=== PATIENT | female | born 1985 | race Caucasian/White ===

== ENCOUNTER → 2019-03-05 15:20 | Outpatient (CLI) | payer MEDICAID, SELFPAY ==
[2019-03-05 14:18] VITALS: BMI 40.4
[2019-03-05 17:14] LABS: ALB/GLOB Ratio 0.9 RATIO (0.9-2.4); AST(SGOT) 46 U/L (15-37); Alanine Aminotransfer ALT/SGPT 51 U/L (13-56); Albumin, Serum 3.3 g/dL (3.2-5.0); Alkaline Phosphatase 57 U/L (45-117); Anion Gap 8 (5-15); BUN 5 mg/dL (7-18); BUN/Creat Ratio 8.2 RATIO (10-20); Calcium,Total 8.4 mg/dL (8.5-10.1); Chloride 106 mmol/L (98-107); Creatinine, Serum 0.61 mg/dL (0.55-1.02); EST Glomerular Filtration Rate 120 mL/min (>60); Est Glom Filt Rate - Afr Amer 145 mL/min (>60); Globulin 3.6 g/dL (2.2-4.2); Glucose 113 mg/dL (74-106); Glucose Challenge Gest 1H 50g 113 mg/dL (70-140); Potassium 3.4 mmol/L (3.5-5.1); Protein, Total 6.9 g/dL (6.4-8.2); Sodium Level 138 mmol/L (136-145)
[2019-03-05 17:37] LABS: Absolute Neutrophil Count 3.1 X10^3/uL (2.0-7.7); Basophil# 0.01 X10^3/uL; Basophil% 0.2 % (0-1); Eosinophil# 0.11 X10^3/uL; Eosinophils% 1.8 % (0-5); Hematocrit 40.5 % (37-47); Hemoglobin 13.6 g/dl (12.0-15.0); Lymphocyte % 37.5 % (19-41); Mean Corp Hgb Conc 33.6 g/gl (32-36); Mean Corpuscular Hgb 30.3 pg (27.0-32.0); Mean Corpuscular Volume 90.2 fL (81-99); Monocyte# 0.57 X10^3/uL; Monocyte% 9.3 % (0-10); Neutrophil # 3.14 X10^3/uL (2.7-7.7); Platelet Count 233 K/mm3 (150-450); RBC Distribution Width CV 11.9 % (11.6-14.6); RBC Distribution Width SD 38.3 fl (35.1-43.9); Red Blood Count 4.49 M/mm3 (4.2-5.4); White Blood Count 6.1 K/mm3 (4.4-11.0)
[2019-03-05 17:43] LABS: POSITIVE COUNT NO; POSITIVE DIFFERENTIAL NO; POSITIVE MORPHOLOGY NO
[2019-03-05 18:01] LABS: HIV - WCH Non-Reactive (Nonreactive); Rubella IgG 61.2 IU/mL
[2019-03-05 19:48] LABS: Chlamydia Trachomatis by PCR Negative (Negative); Neisserai gonorrhoeae by PCR Negative (Negative); Probe Check PASS; Sample Adequacy Control PASS; Specimen Processing Control PASS
[2019-03-07 02:05] LABS: Rapid Plasmin Reagin (RPR) NONREACTIVE (NONREACTIVE)
[2019-03-08 03:06] LABS: HCV Quant. RNA PCR 1120000 IU/mL (.)
[2019-03-08 12:44] LABS: HCV log 10 6.049 (.); HEPATITIS B SURFACE AG Negative (Negative)
[2019-03-11 16:51] LABS: HPV APTIMA, High Risk Negative (Negative)
== END ==
PROVIDERS: Referring Provider Nurse Practitioner Women's Health; Visit Provider Nurse Practitioner Women's Health
DX: O98.519 Other viral diseases complicating pregnancy, unspecified trimester (principal); B19.20 Unspecified viral hepatitis C without hepatic coma; O99.210 Obesity complicating pregnancy, unspecified trimester; Z3A.00 Weeks of gestation of pregnancy not specified; Z12.4 Encounter for screening for malignant neoplasm of cervix
CPT/HCPCS: 36415; 80053; 82950; 85025; 86592; 86703; 86762; 86850; 86900; 87086; 87088; 87340; 87491; 87522; 87591; 87624; 88175; G0145

== ENCOUNTER → 2019-04-04 09:02 | Outpatient (CLI) | payer MEDICAID, SELFPAY ==
[2019-04-04 08:31] VITALS: BMI 40.4
[2019-04-04 10:07] LABS: Partial Thromboplast Time 28.3 Seconds (24.1-36.2)
[2019-04-11 12:00] LABS: Protein C, Functional 122 % (73-180); Protein S, Free 49 % (57-157); Protein S, Total 58 % (60-150)
== END ==
PROVIDERS: Referring Provider Obstetrics & Gynecology; Visit Provider Obstetrics & Gynecology
DX: Z34.82 Encounter for supervision of other normal pregnancy, second trimester (principal); Z31.430 Encounter of female for testing for genetic disease carrier status for procreative management
CPT/HCPCS: 36415; 81241; 85303; 85305; 85306; 85730

== ENCOUNTER 2019-05-02 22:05 | Emergency (ER) | payer MEDICAID, SELFPAY ==
[2019-04-04 08:31] VITALS: BMI 40.4
[2019-05-02 22:05] VITALS: BP 127/66; PULSE 110; RESP 18; TEMP 36.8; O2SAT 97; BMI 35.8
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
[2019-05-02 23:37] VITALS: PULSE 84; RESP 16; O2SAT 98
== END 2019-05-02 23:37 | disposition home or self-care (01) ==
PROVIDERS: Emergency Provider Emergency Medicine
DX: O9A.212 Injury, poisoning and certain other consequences of external causes complicating pregnancy, second trimester (principal); S30.0XXA Contusion of lower back and pelvis, initial encounter; Z3A.18 18 weeks gestation of pregnancy; V89.2XXA Person injured in unspecified motor-vehicle accident, traffic, initial encounter; Y93.9 Activity, unspecified; Y92.9 Unspecified place or not applicable; O98.412 Viral hepatitis complicating pregnancy, second trimester; B18.2 Chronic viral hepatitis C; F19.11 Other psychoactive substance abuse, in remission
CPT/HCPCS: 86900; 86901; 99282

== ENCOUNTER → 2019-05-09 15:39 | Outpatient (CLI) | payer MEDICAID, SELFPAY ==
[2019-05-09 14:24] VITALS: BMI 35.8
[2019-05-09 17:02] LABS: Amphetamine Urine VISTA NEGATIVE (<1000 ng/mL); Barbiturate Urine VISTA NEGATIVE (< 200 ng/mL); Benzodiazepine Urine VISTA NEGATIVE (< 200 ng/mL); Cocaine Urine VISTA NEGATIVE (< 300 ng/mL); Ecstacy Urine VISTA NEGATIVE (< 500 ng/mL); Methadone Urine VISTA NEGATIVE (< 300 ng/mL); PCP Urine VISTA NEGATIVE (< 25 ng/mL); THC Urine VISTA NEGATIVE (< 50 ng/mL); Vista UDS pH Range 6
== END ==
PROVIDERS: Referring Provider Nurse Practitioner Women's Health; Visit Provider Nurse Practitioner Women's Health
DX: Z87.898 Personal history of other specified conditions (principal)
CPT/HCPCS: 80307

== ENCOUNTER → 2019-06-04 16:53 | Outpatient (CLI) | payer MEDICAID, SELFPAY ==
[2019-05-09 14:24] VITALS: BMI 35.8
[2019-06-04 18:09] LABS: AST(SGOT) 18 U/L (15-37); Alanine Aminotransfer ALT/SGPT 19 U/L (13-56); Albumin, Serum 2.8 g/dL (3.2-5.0); Alkaline Phosphatase 57 U/L (45-117); Bilirubin, Direct 0.15 mg/dL (0.00-0.30); GGTP 18 U/L (5-55); Globulin 3.4 g/dL (2.2-4.2); Protein, Total 6.2 g/dL (6.4-8.2)
[2019-06-04 18:56] LABS: HIV - WCH Non-Reactive (Nonreactive)
[2019-06-09 20:07] LABS: HEPATITIS B SURFACE AG Negative (Negative); Hepatitis A IgM Antibody Negative (Negative); Hepatitis B Core AB IgM Negative (Negative)
[2019-06-13 14:28] LABS: Hep C Antibodies >11.0 s/co ratio (0.0-0.9)
== END ==
PROVIDERS: Referring Provider Obstetrics & Gynecology Maternal & Fetal Medicine
DX: O98.419 Viral hepatitis complicating pregnancy, unspecified trimester (principal); B18.2 Chronic viral hepatitis C; O26.899 Other specified pregnancy related conditions, unspecified trimester; R10.9 Unspecified abdominal pain; R53.82 Chronic fatigue, unspecified; O99.320 Drug use complicating pregnancy, unspecified trimester; F11.21 Opioid dependence, in remission; Z3A.00 Weeks of gestation of pregnancy not specified; Z82.49 Family history of ischemic heart disease and other diseases of the circulatory system
CPT/HCPCS: 36415; 80074; 80076; 81240; 82977; 86703

== ENCOUNTER → 2019-07-04 15:30 | Outpatient (CLI) | payer MEDICAID, SELFPAY ==
[2019-07-04 15:11] VITALS: BMI 35.4
[2019-07-04 17:12] LABS: Absolute Lymphocyte Count 2.64 X10^3/uL (0.83-4.51); Absolute Neutrophil Count 5.7 X10^3/uL (2.0-7.7); Basophil# 0.03 X10^3/uL; Basophil% 0.3 % (0-1); Eosinophil# 0.13 X10^3/uL; Eosinophils% 1.4 % (0-5); Hematocrit 32.2 % (37-47); Hemoglobin 10.6 g/dL (12.0-15.0); Lymphocyte # 2.64 X10^3/ul (4.0); Lymphocyte % 28.9 % (19-41); Mean Corp Hgb Conc 32.9 g/dL (32-36); Mean Corpuscular Hgb 30.8 pg (27.0-32.0); Mean Corpuscular Volume 93.6 fL (81-99); Mean Platelet Vol. 11.1 fl (6.2-12.0); Monocyte# 0.53 X10^3/uL; Monocyte% 5.8 % (0-10); NRBC Flagged by Analyzer 0 % (0-5); Neutrophil # 5.74 X10^3/uL (2.7-7.7); Neutrophil % 63.1 % (47-70); Platelet Count 208 K/mm3 (150-450); RBC Distribution Width CV 12.6 % (11.6-14.6); RBC Distribution Width SD 43.4 fl (35.1-43.9); Red Blood Count 3.44 M/mm3 (4.2-5.4); White Blood Count 9.1 K/mm3 (4.4-11.0)
[2019-07-04 17:19] LABS: Amphetamine Urine VISTA NEGATIVE (<1000 ng/mL); Barbiturate Urine VISTA NEGATIVE (< 200 ng/mL); Benzodiazepine Urine VISTA NEGATIVE (< 200 ng/mL); Cocaine Urine VISTA NEGATIVE (< 300 ng/mL); Ecstacy Urine VISTA NEGATIVE (< 500 ng/mL); Methadone Urine VISTA NEGATIVE (< 300 ng/mL); PCP Urine VISTA NEGATIVE (< 25 ng/mL); THC Urine VISTA NEGATIVE (< 50 ng/mL); Vista UDS pH Range 6
[2019-07-04 17:20] LABS: Glucose Challenge Gest 1H 50g 97 mg/dL (70-140)
== END ==
PROVIDERS: Obstetrics & Gynecology; Referring Provider Nurse Practitioner Women's Health; Visit Provider Nurse Practitioner Women's Health
DX: O09.90 Supervision of high risk pregnancy, unspecified, unspecified trimester (principal); Z3A.00 Weeks of gestation of pregnancy not specified; Z87.898 Personal history of other specified conditions
CPT/HCPCS: 36415; 80307; 82950; 85025

== ENCOUNTER → 2019-09-10 15:09 | Outpatient (CLI) | payer MEDICAID, SELFPAY ==
[2019-09-10 08:15] VITALS: BMI 35.4
== END ==
PROVIDERS: Referring Provider Obstetrics & Gynecology; Visit Provider Obstetrics & Gynecology
DX: Z36.85 Encounter for antenatal screening for Streptococcus B (principal)
CPT/HCPCS: 87081

== ENCOUNTER 2019-09-29 07:01 | Inpatient (IN) | payer MEDICAID, SELFPAY ==
[2019-09-26 14:18] VITALS: BMI 35.4
[2019-09-29 07:37] VITALS: BMI 33.6
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
[2019-09-29] MEDS: 0.9% Normal Saline Single 100 ML IV.SOLN. IY (08:25)
[2019-09-29 08:29] LABS: Absolute Lymphocyte Count 2.83 X10^3/uL (0.83-4.51); Absolute Neutrophil Count 5.4 X10^3/uL (2.0-7.7); Basophil# 0.02 X10^3/uL; Basophil% 0.2 % (0-1); Eosinophil# 0.09 X10^3/uL; Hematocrit 35.9 % (37-47); Hemoglobin 11.9 g/dL (12.0-15.0); Lymphocyte # 2.83 X10^3/ul (4.0); Lymphocyte % 31.7 % (19-41); Mean Corp Hgb Conc 33.1 g/dL (32-36); Mean Corpuscular Hgb 30.1 pg (27.0-32.0); Mean Corpuscular Volume 90.7 fL (81-99); Mean Platelet Vol. 10.8 fl (6.2-12.0); Monocyte# 0.55 X10^3/uL; Monocyte% 6.2 % (0-10); NRBC Flagged by Analyzer 0 % (0-5); Neutrophil # 5.39 X10^3/uL (2.7-7.7); Neutrophil % 60.5 % (47-70); Platelet Count 223 K/mm3 (150-450); RBC Distribution Width CV 12.4 % (11.6-14.6); RBC Distribution Width SD 40.7 fl (35.1-43.9); Red Blood Count 3.96 M/mm3 (4.2-5.4); White Blood Count 8.9 K/mm3 (4.4-11.0)
[2019-09-29] MEDS: Lactated Ringers 1,000 ML 50 ML IV (08:42)
[2019-09-29] MEDS: Oxytocin 30 units/NS 500 ml 30 UNITS/500 ML IV.SOLN IV (08:44)
[2019-09-29 08:53] LABS: ALB/GLOB Ratio 0.7 RATIO (0.9-2.4); AST(SGOT) 17 U/L (15-37); Alanine Aminotransfer ALT/SGPT 15 U/L (13-56); Albumin, Serum 2.6 g/dL (3.2-5.0); Alkaline Phosphatase 97 U/L (45-117); Anion Gap 7 (5-15); BUN 8 mg/dL (7-18); BUN/Creat Ratio 14.1 RATIO (10-20); Chloride 110 mmol/L (98-107); Creatinine, Serum 0.57 mg/dL (0.55-1.02); EST Glomerular Filtration Rate 130 mL/min (>60); Est Glom Filt Rate - Afr Amer 157 mL/min (>60); Estimated Creatinine Clearance 135.24 ml/min; Globulin 3.5 g/dL (2.2-4.2); Glucose 86 mg/dL (74-106); Potassium 3.6 mmol/L (3.5-5.1); Protein, Total 6.1 g/dL (6.4-8.2); Sodium Level 139 mmol/L (136-145)
[2019-09-29] MEDS: Lactated Ringers 500 ML 999 ML IV ×3 (09:40→20:00)
[2019-09-29 09:48] LABS: Amphetamine Urine VISTA NEGATIVE (<1000 ng/mL); Barbiturate Urine VISTA NEGATIVE (< 200 ng/mL); Benzodiazepine Urine VISTA NEGATIVE (< 200 ng/mL); Cocaine Urine VISTA NEGATIVE (< 300 ng/mL); Ecstacy Urine VISTA NEGATIVE (< 500 ng/mL); Methadone Urine VISTA NEGATIVE (< 300 ng/mL); PCP Urine VISTA NEGATIVE (< 25 ng/mL); THC Urine VISTA NEGATIVE (< 50 ng/mL); Vista UDS pH Range 5
[2019-09-29] MEDS: fentaNYL-bupivacaine (epidural) 100 ML BAG EPIDURAL ×2 (10:32→15:01)
[2019-09-29] MEDS: Lactated Ringers 1,000 ML 200 ML IV ×2 (15:01→20:31)
--- NOTE | 2019-09-29 17:10 | PN_ITS ---
Progress Note FHT: 120 Moderate variability reactive isolated variable deceleration category II tracing [place]: q 3-4 Contractions no cervical change, iupc placed and recommend increasing pitocin
[2019-09-29] MEDS: BUPRENORPHINE HCL 8 MG TAB.SUBL SL (17:31)
[2019-09-29] MEDS: Mag Hydrox/Al Hydrox/Simeth 30 ML UDC PO (19:05)
[2019-09-29] MEDS: Amnioinfusion- 0.9% NS 1,000 ML IV.SOLN. 500 ML INTRA-UTER (20:51)
[2019-09-29] MEDS: Oxytocin 30 units/NS 500 ml 30 UNITS/500 ML IV.SOLN 334 UNITS IV (21:33)
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
--- NOTE | 2019-09-29 23:45 | NURSING ---
Report given to Vero FIGUEROA.
[2019-09-29] MEDS: Naproxen 250 MG Tablet 500 MG PO (23:58)
[2019-09-30 03:40] VITALS: BP 103/67; PULSE 75; RESP 18; TEMP 36.9
[2019-09-30] MEDS: BUPRENORPHINE HCL 8 MG TAB.SUBL SL ×2 (05:35→13:49)
--- NOTE | 2019-09-30 07:56 | PN.OBGYN_ITS ---
Patient Problems: Active and Suspected Problems (Last Reviewed 09/26/19 @ 14:16 by Alaina Bradshaw) Encounter for induction of labor (Acute) Subjective: doing well no complaints pain controlled no CP SOB N V ambulating well tolerating po lochia moderate, going well - Physical Exam Vitals/I&O's: Vital Signs Temp Pulse Resp BP 98.4 F 75 18 103/67 09/30/19 03:40 09/30/19 03:40 09/30/19 03:40 09/30/19 03:40 Oxygen Delivery Method Room Air Weight: 215 lb Body Mass Index (BMI) 33.6 Intake and Output for Last 24 Hours 09/28/19 09/29/19 09/30/19 23:59 23:59 23:59 Intake Total 4539.24 / 4539.24 333 / 333 Output Total 600 / 900 600 / 600 Balance 3939.24 / 3639.24 -267 / -267 General: Alert, Oriented x3 Abdomen: Non Tender, Non-Distended, - - FF below U Laboratory Results 09/29/19 08:10: WBC 8.9, RBC 3.96 L, Hgb 11.9 L, Hct 35.9 L, MCV 90.7, MCH 30.1, MCHC 33.1, RDW Std Deviation 40.7, RDW Coeff of Juan 12.4, Plt Count 223, MPV 10.8, Immature Gran % (Auto) 0.400, Neut % (Auto) 60.5, Lymph % (Auto) 31.7, Curry % (Auto) 6.2, Eos % (Auto) 1.0, Baso % (Auto) 0.2, Absolute Neuts (auto) 5.4, Absolute Lymphs (auto) 2.83, Nucleated RBC % 0 09/29/19 08:10: Blood Type O POSITIVE, Antibody Screen NEGATIVE 09/29/19 08:10: Sodium 139, Potassium 3.6, Chloride 110 H, Carbon Dioxide 22.0, Anion Gap 7, BUN 8, Creatinine 0.57, Estim Creat Clear Calc 135.24, Est GFR (MDRD) Af Amer 157, Est GFR (MDRD) Non-Af 130, BUN/Creatinine Ratio 14.1, Glucose 86, Calcium 8.0 L, Total Bilirubin 0.20, AST 17, ALT 15, Alkaline Phosphatase 97, Total Protein 6.1 L, Albumin 2.6 L, Globulin 3.5, Albumin/Globulin Ratio 0.7 L 09/29/19 09:00: Urine Opiates Screen NEGATIVE, Urine Methadone Screen NEGATIVE, Ur Barbiturates Screen NEGATIVE, Ur Phencyclidine Scrn NEGATIVE, Ur Amphetamines Screen NEGATIVE, U Methamphetamin-MDMA NEGATIVE, U Benzodiazepines Scrn NEGATIVE, Urine Cocaine Screen NEGATIVE, U Cannabinoids Screen NEGATIVE, Ur Drug Screen Comment Current Medications Acetaminophen (Tylenol) 1,000 mg PO Q8H PRN PRN PRN Reason: Pain Score 1-3/10 Al Hydroxide/Mg Hydroxide (Mylanta Ii) 15 - 30 ml PO Q4H PRN PRN PRN Reason: INDIGESTION Last Admin: 09/29/19 19:05 Dose: 30 ml Documented by: Bisacodyl (Dulcolax) 10 mg RECTAL UD PRN PRN Reason: If no BM Buprenorphine HCl (Buprenorphine Hcl) 8 mg SL BID@0600,1800 REPLACED BY [facility] Last Admin: 09/30/19 05:36 Dose: Not Given Documented by: Citric Acid/Sodium Citrate (Bicitra) 30 ml PO X1 PRN PRN Reason: Section Dibucaine (Dibucaine) 1 applic TOPICAL TID PRN PRN; Protocol PRN Reason: Discomfort Ephedrine Sulfate () 10 mg IV Q10M PRN PRN Reason: hypotension Ephedrine Sulfate () 10 mg IM Q30M PRN PRN Reason: hypotension Fentanyl/Bupivacaine/Sodium Chlor () 0 ml EPIDURAL UD REPLACED BY [facility]; Protocol Last Admin: 09/29/19 15:01 Dose: 100 ml Documented by: Hydrocortisone (Hytone) 1 applic TOPICAL TID PRN PRN; Protocol PRN Reason: Discomfort Lactated Ringer's () 500 mls @ 999 mls/hr IV .Q31M PRN PRN Reason: Epidural Last Infusion: 09/29/19 10:18 Dose: Infused Documented by: Lactated Ringer's () 500 mls @ 999 mls/hr IV .Q31M PRN PRN Reason: Corrective Measures Last Infusion: 09/29/19 20:31 Dose: Infused Documented by: Oxytocin/Sodium Chloride () 30 units in 500 mls @ 2 mls/hr IV .Q250H REPLACED BY [facility] Last Infusion: 09/29/19 22:03 Dose: Infused Documented by: Naloxone HCl 4 mg/ Dextrose 504 mls @ 0 mls/hr IV .Q0M PRN; Protocol PRN Reason: To maintain Resp. rate >10 Methylergonovine Maleate (Methergine) 0.2 mg IM X1 PRN PRN Reason: Excess bleeding/uterine atony Nalbuphine HCl (Nubain) 5 - 10 mg IV Q3H PRN PRN PRN Reason: Pain Score 4-10/10 Nalbuphine HCl (Nubain) 5 - 10 mg SC Q3H PRN PRN PRN Reason: Pain Score 4-10/10 Nalbuphine HCl (Nubain) 5 mg IV Q3H PRN PRN PRN Reason: ITCHING Naloxone HCl (Narcan) 0.02 mg IV Q1M PRN PRN Reason: RR< 10 AND PT UNRESPONSIVE Naproxen (Naprosyn) 500 mg PO Q8H PRN PRN PRN Reason: Pain Score 1-3/10 Last Admin: 09/29/19 23:58 Dose: 500 mg Documented by: Ondansetron HCl (Zofran) 4 mg IV Q4H PRN PRN PRN Reason: NAUSEA Ondansetron HCl (Zofran) 4 mg IV Q4H PRN PRN PRN Reason: Nausea Oxycodone HCl (Oxyir) 5 - 10 mg PO Q4H PRN PRN PRN Reason: Pain Score 4-10/10 Prochlorperazine Edisylate (Compazine Iv) 10 mg IV Q6H PRN PRN PRN Reason: NAUSEA Senna/Docusate Sodium (Senokot-S, Mary Ann-Colace) 1 - 2 tablet PO DAILY PRN PRN PRN Reason: Constipation Simethicone (Mylicon) 80 mg PO PCHS PRN PRN Reason: Indigestion/Stomach pain Sodium Chloride () 5 - 15 ml IV UD PRN PRN Reason: SALINE FLUSH Medical Necessity - Tobacco Use Smoking Status: Light Smoker (<10/day) Assessment/Plan All Active Problems (Last Reviewed 09/26/19 @ 14:16 by Alaina Bradshaw) Encounter for induction of labor (Acute) Influenza vaccination declined (Acute) Anemia affecting (Acute) Gene mutation (Acute) History of CHF (congestive heart failure) (Acute) History of loss in prior , currently (Acute) (Acute) Supervision of high risk , antepartum (Acute) s/p PPD # 1 1. routine post delivery care 2. breast feeding- support given 3. rh positive 4. rubella immune
[2019-09-30] MEDS: Naproxen 250 MG Tablet 500 MG PO ×2 (08:33→19:35)
[2019-09-30 08:36] VITALS: BP 102/43; PULSE 64; RESP 14; TEMP 36.8
[2019-09-30 12:18] VITALS: BP 118/46; PULSE 62; RESP 18; TEMP 36.5
[2019-09-30 15:58] VITALS: BP 124/72; PULSE 60; RESP 16; TEMP 36.6
[2019-09-30 19:50] VITALS: BP 122/68; PULSE 68; RESP 18; TEMP 36.3
[2019-10-01 00:15] VITALS: BP 112/56; PULSE 69; RESP 18; TEMP 36.4
[2019-10-01 03:35] VITALS: BP 114/55; PULSE 61; RESP 16; TEMP 36.3
[2019-10-01] MEDS: BUPRENORPHINE HCL 8 MG TAB.SUBL SL ×2 (04:59→14:25)
--- NOTE | 2019-10-01 08:01 | PCM.PN.OB ---
Patient Problems: Active and Suspected Problems (Last Reviewed 09/26/19 @ 14:16 by Alaina Bradshaw) Encounter for induction of labor (Acute) Subjective: doing well no complaints pain controlled no CP SOB N V ambulating well tolerating po lochia moderate, going well - Physical Exam Vitals/I&O's: Vital Signs Temp Pulse Resp BP 97.4 F L 61 16 114/55 L 10/01/19 03:35 10/01/19 03:35 10/01/19 03:35 10/01/19 03:35 Oxygen Delivery Method Room Air Weight: 215 lb Body Mass Index (BMI) 33.6 Intake and Output for Last 24 Hours 09/29/19 09/30/19 10/01/19 23:59 23:59 23:59 Intake Total 4539.24 / 4539.24 333 / 333 Output Total 600 / 900 600 / 600 Balance 3939.24 / 3639.24 -267 / -267 General: Alert, Oriented x3 Abdomen: Soft, Non Tender, - - FF below U Current Medications Acetaminophen (Tylenol) 1,000 mg PO Q8H PRN PRN PRN Reason: Pain Score 1-3/10 Al Hydroxide/Mg Hydroxide (Mylanta Ii) 15 - 30 ml PO Q4H PRN PRN PRN Reason: INDIGESTION Last Admin: 09/29/19 19:05 Dose: 30 ml Documented by: Bisacodyl (Dulcolax) 10 mg RECTAL UD PRN PRN Reason: If no BM Buprenorphine HCl (Buprenorphine Hcl) 8 mg SL BID@0500,1400 SHANTEL Last Admin: 10/01/19 06:27 Dose: Not Given Documented by: Citric Acid/Sodium Citrate (Bicitra) 30 ml PO X1 PRN PRN Reason: Section Dibucaine (Dibucaine) 1 applic TOPICAL TID PRN PRN; Protocol PRN Reason: Discomfort Ephedrine Sulfate () 10 mg IV Q10M PRN PRN Reason: hypotension Ephedrine Sulfate () 10 mg IM Q30M PRN PRN Reason: hypotension Fentanyl/Bupivacaine/Sodium Chlor () 0 ml EPIDURAL UD [facility]; Protocol Last Admin: 09/29/19 15:01 Dose: 100 ml Documented by: Hydrocortisone (Hytone) 1 applic TOPICAL TID PRN PRN; Protocol PRN Reason: Discomfort Lactated Ringer's () 500 mls @ 999 mls/hr IV .Q31M PRN PRN Reason: Epidural Last Infusion: 09/29/19 10:18 Dose: Infused Documented by: Lactated Ringer's () 500 mls @ 999 mls/hr IV .Q31M PRN PRN Reason: Corrective Measures Last Infusion: 09/29/19 20:31 Dose: Infused Documented by: Oxytocin/Sodium Chloride () 30 units in 500 mls @ 2 mls/hr IV .Q250H [facility] Last Infusion: 09/29/19 22:03 Dose: Infused Documented by: Naloxone HCl 4 mg/ Dextrose 504 mls @ 0 mls/hr IV .Q0M PRN; Protocol PRN Reason: To maintain Resp. rate >10 Methylergonovine Maleate (Methergine) 0.2 mg IM X1 PRN PRN Reason: Excess bleeding/uterine atony Nalbuphine HCl (Nubain) 5 - 10 mg IV Q3H PRN PRN PRN Reason: Pain Score 4-10/10 Nalbuphine HCl (Nubain) 5 - 10 mg SC Q3H PRN PRN PRN Reason: Pain Score 4-10/10 Nalbuphine HCl (Nubain) 5 mg IV Q3H PRN PRN PRN Reason: ITCHING Naloxone HCl (Narcan) 0.02 mg IV Q1M PRN PRN Reason: RR< 10 AND PT UNRESPONSIVE Naproxen (Naprosyn) 500 mg PO Q8H PRN PRN PRN Reason: Pain Score 1-3/10 Last Admin: 09/30/19 19:35 Dose: 500 mg Documented by: Ondansetron HCl (Zofran) 4 mg IV Q4H PRN PRN PRN Reason: NAUSEA Ondansetron HCl (Zofran) 4 mg IV Q4H PRN PRN PRN Reason: Nausea Oxycodone HCl (Oxyir) 5 - 10 mg PO Q4H PRN PRN PRN Reason: Pain Score 4-10/10 Prochlorperazine Edisylate (Compazine Iv) 10 mg IV Q6H PRN PRN PRN Reason: NAUSEA Senna/Docusate Sodium (Senokot-S, Mary Ann-Colace) 1 - 2 tablet PO DAILY PRN PRN PRN Reason: Constipation Simethicone (Mylicon) 80 mg PO PCHS PRN PRN Reason: Indigestion/Stomach pain Sodium Chloride () 5 - 15 ml IV UD PRN PRN Reason: SALINE FLUSH Medical Necessity - Tobacco Use Smoking Status: Light Smoker (<10/day) Assessment/Plan All Active Problems (Last Reviewed 09/26/19 @ 14:16 by Alania Bradshaw) Encounter for induction of labor (Acute) Influenza vaccination declined (Acute) Anemia affecting (Acute) Gene mutation (Acute) History of CHF (congestive heart failure) (Acute) History of loss in prior , currently (Acute) (Acute) Supervision of high risk , antepartum (Acute) s/p PPD # 2 1. routine post delivery care 2. breast feeding- support given 3. rh positive 4. rubella immune 5. hotel discharge today
--- NOTE | 2019-10-01 08:04 | DCINST_ITS ---
Additional Instructions: If you experience any of the following, contact your healthcare provider. * Bleeding that soaks a pad every hour for 2 hours * Fever 100.4 or higher * Unrelieved incision or abdominal pain * Swelling, redness, discharge or bleeding from your incision or episiotomy site * Your incision begins to separate * Problems urinating (including inability to urinate or burning while urinating). * Visual changes * Severe headache * Flu-like symptoms * Pain or redness in one of both of your breasts * Pain, warmth, tenderness or swelling in your legs, especially the calf area * Frequent nausea and vomiting * Symptoms of depression or anxiety If you experience any of the following, call 911 or go to the nearest Emergency Room. * Chest pain * Problems breathing * Seizure activity * Partial or complete paralysis of a body part, slurred speech, weakness or drooping of the face, or a sudden inability to walk or hold your balance Allergies/Adverse Reactions: Allergies No Known Allergies Allergy (Verified 09/26/19 14:17) Medications to take at Discharge buprenorphine HCl 8 mg sublingual tablet 8 mg SUBLINGUAL BID 03/05/19 Prenatabs FA 09/29/19 Primary Care Physician: Care Physician,No Primary [Primary Care Provider] - Test Results: Test results from this visit will be discussed in further detail at your follow- up appointment, if applicable.
--- NOTE | 2019-10-01 08:04 | PCM.DCVAG ---
Additional Instructions: If you experience any of the following, contact your healthcare provider. Bleeding that soaks a pad every hour for 2 hours Fever 100.4 or higher Unrelieved incision or abdominal pain Swelling, redness, discharge or bleeding from your incision or episiotomy site Your incision begins to separate Problems urinating (including inability to urinate or burning while urinating). Visual changes Severe headache Flu-like symptoms Pain or redness in one of both of your breasts Pain, warmth, tenderness or swelling in your legs, especially the calf area Frequent nausea and vomiting Symptoms of depression or anxiety If you experience any of the following, call 911 or go to the nearest Emergency Room. Chest pain Problems breathing Seizure activity Partial or complete paralysis of a body part, slurred speech, weakness or drooping of the face, or a sudden inability to walk or hold your balance Allergies/Adverse Reactions: Allergies No Known Allergies Allergy (Verified 09/26/19 14:17) Medications to take at Discharge buprenorphine HCl 8 mg sublingual tablet 8 mg SUBLINGUAL BID 03/05/19 Prenatabs FA 09/29/19 Primary Care Physician: Care Physician,No Primary [Primary Care Provider] - Test Results: Test results from this visit will be discussed in further detail at your follow-up appointment, if applicable.
[2019-10-01 08:20] VITALS: BP 112/55; PULSE 66; RESP 18; TEMP 36.3
[2019-10-01 14:00] VITALS: BP 125/75; PULSE 65; RESP 18; TEMP 36.6
--- NOTE | 2019-10-01 15:15 | CASEMGMT ---
Social Work Assessment Labor and Delivery Unit Date of Referral: 09.29.2019 Time of Referral: 0809 Referred By: Dr. High Date of Intervention: 10.01.2019 Time of Intervention: 151 Reason for Referral: maternal history of drug abuse, on Subutex since 2015. History obtained from: medical records and mother of baby (MOB) Alayna Vieira Household composition: MOB, father of baby (FOB) Aldo Clayton, and their older child Stephan. MOB reports home situation is safe and adequate. Patient's parent/guardian status: MOB is age 34 involved with FOB for the last 7 years. MOB and FOB have had 3 children together, 2 of whom are living. MOB denies any form of abuse, control, or intimidation in relationship with FOB. Minor Children in the family: Stephan Clayton, born [birth year]2013 Monica Clayton, 19-week demise, delivered on 09.16.2016 baby, Dio Clayton, born on 09.29.2019 Medical History: MOB is G3, 2 to 3 after delivering Dio. Maternal history of Hepatitis C. care started at 9 weeks gestation. Baby delivered 6 pounds 10 ounces, ?s 9 and 10 at 1 and 5 minutes of life. 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 Educational Status: No reported issues with reading, writing, or learning comprehension. 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 MOB reports has had this job for about 3 years. FOB works at [employer]. MOB reports income is adequate. Infant Supplies: MOB reports to have needed supplies, but still needs to buy formula. MOB report purchase of formula will not be an issue. MOB reports to have car seat, pack-n-play, bassinet, crib, clothing, diapers, wipes, and bottles. Childcare/Caregiver(s): MOB and MOB plans to take baby back to work when MOB returns. Transportation: MOB denies issues, reports to have reliable transportation. Programs/Agencies Involved: MOB has Medicaid through [facility]. Denies any other agency involvement currently. MOB reports to be working with Dr. Toney out of [place], [place] for Subutex management. Reports will attend 12 step meetings sometimes. Children Services/Legal Issues: Denies any legal issues. Reports history of children services involvement out [facility] (prior to 2015) for issues related to ALPHONSO?s sister and sister?s boyfriend being in the home and bringing in a mobile meth lab. ALPHONSO reports past case with [facility] after the loss of Monica, as ALPHONSO was actively using heroin at that time and children service involved to assure safety of Stephan. ALPHONSO reports the involvement was short and denies ever going to court. MOB denies any active case with children services or any cases since 2015. Behavioral Health Issues: Mental Health History: ALPHONSO denies history of depression, anxiety, depression, or other mental health history. Denies any history of suicidal ideation, planning, intent or attempts. Substance Use History: ALPHONSO reports has tried most all drugs in the past, but drugs of choice have been opiates, pills turning to heroin use. ALPHONSO reports was on Subutex during with Stephan in 2013, and has been on and off Subutex over the years. ALPHONSO reports has been on prescribed Subutex since right before becoming with Dio. ALPHONSO states her sober date from heroin is 09.17.2019. ALPHONSO reports has used Subutex off and on from the streets (family and friends) in the past, but again states has been in treatment with Dr. Toney since right before becoming . ALPHONSO is prescribed Subutex 2 times a day, 8 mg tablets. ALPHONSO denies any illicit drug use during this . Reports may have had some alcohol prior to knowledge but denies use upon finding out a about . Denies any dependence or abuse issues related to alcohol. ALPHONSO does smoke tobacco from from 1.5 packs a day down to 2-3 cigarettes a day at the end of this . ALPHONSO was vaping for a while but switched to cigarettes as thought this may be better than vaping for the baby in utero. No current supportive counseling program for substance use issues in place. Reports finished outpatient program at [facility] in 2015. Family History: ALPHONSO reports drug addiction runs in her family and to have siblings struggling with this. ALPHONSO reports years ago FOB did use drugs, such as cocaine, no history of heroin use for FOB. ALPHONSO denies FOB as actively using any substances. Drug Screens: maternal screens have been negative on 05.09.2019, 07.04.2019, and at delivery on 09.29.2019. Baby?s urine is negative except for Subutex. Baby?s meconium is pending. BRAYAN scoring so far for baby has been low, 0-2. Family/Social Stressors: MOB?s mother last year. MOB history of addiction, getting on Subutex right before . MOB reports FOB sometimes does not understand why MOB is still taking Subutex and thinks MOB should not be on this medication. Support Systems: MOB reports FOB and MOB?s boss are primary supports. MOB reports most of coworkers are supportive and more like family to MOB than MOB?s own family. MOB reports to have contacts from the rooms (12 step meetings) that could go to if needed as well. No formal sponsor in place. Depression/Shaken Baby/Safe Sleeping: Information being provided on topics. ASSESSMENT: Met with MOB in room. MOB cooperative and pleasant, good eye contact. MOB smiled throughout social work visit. MOB had baby laying in MOB's lap during social work visit. MOB looked at baby and touched baby intermittently. Through discussion, MOB presents self as being in a positive place with social supports, finances, and having the things she needs for the baby. MOB denies need for WIC. Declines referral to [facility]. MOB denies use of heroin during this or since of Monica in 2016. MOB has had periods of using Subutex illicitly, but states has been in treatment, prescribed Subutex since right before , so about 10-11 months now. Denies illicit substance use of any kind during this . MOB reports to feel her current treatment with Dr. Toney is adequate. Plans to stay in medication assisted treatment with this physician in the period. No voiced interest in returning to counseling. MOB brought up topic of children services and confirmed with this screen writer that use of Subutex will necessitate a children services referral. Confirmed with MOB that MOB is correct. Processed possible outcomes of referral: screened out or screened in for investigation. MOB reports she is not worried. Discussed with MOB that BRAYAN monitoring for Subutex is typically kept at the 7-day range. Broached with MOB that should baby?s BRAYAN scores rise to need medication treatment himself, that baby would transfer into the [facility]. Educated that this screen writer also provides social work to the [facility]. MOB voiced understanding. MOB shared that her son Chance had to be send to [facility] in [place] for treatment with morphine related to MOB being on Subutex in 2014 as well. Safe Plan of Care for related to substance use: non use of illicit substances. Remain in treatment with Dr. Toney. PLAN: MOB is being discharged home today. Baby remains in the hospital for BRAYAN. Social work to follow this family during baby?s hospitalization. MOB being given community resource list for [facility] and mood and anxiety packet for home going. [facility] Children Services will be called due to substance exposed infant and family history with children series related to drug issues. -MISHEL Toledo, NAPPER TENDER
--- NOTE | 2019-10-01 15:45 | CASEMGMT ---
Social Work Labor and Delivery Unit Call placed to [facility] ([facility]) at [phone]. Referral given to Meera Larry in intake related to substance exposed and past children services involvement with this family. Brief maternal and infant histories provided. Referral will be taken to supervisors/group screening for determination on whether case will be screened in or out for investigation. Plan: Mother of baby is discharging home today. Social work to follow and assist as needed/indicated during baby's stay in the hospital. Any further social work documentation will be found in baby's chart ([id number]) which is linked to this patient's chart. See previous social work documentation this date for details of social work interventions. No other services requested or indicated for MOB. -ARABELLA Toledo, YARN REWINDER
[2019-10-01 18:18] VITALS: BP 129/63; PULSE 58; RESP 18; TEMP 36.5
== END 2019-10-01 19:00 | disposition home or self-care (01) | DRG 560 ==
PROVIDERS: Admitting Provider Obstetrics & Gynecology; Referring Provider Obstetrics & Gynecology; Visit Provider Obstetrics & Gynecology
DX: O69.81X0 Labor and delivery complicated by cord around neck, without compression, not applicable or unspecified (principal); O99.02 Anemia complicating childbirth; D64.9 Anemia, unspecified; O76 Abnormality in fetal heart rate and rhythm complicating labor and delivery; O99.334 Smoking (tobacco) complicating childbirth; F17.200 Nicotine dependence, unspecified, uncomplicated; F11.11 Opioid abuse, in remission; Z79.899 Other long term (current) drug therapy; Z86.19 Personal history of other infectious and parasitic diseases; Z15.89 Genetic susceptibility to other disease; Z3A.38 38 weeks gestation of pregnancy; Z37.0 Single live birth
CPT/HCPCS: 59025; 59050; 80053; 80307; 85025; 86850; 86900; 86901; 99218; J7030; J7120; G0378

== ENCOUNTER → 2020-03-22 15:54 | Outpatient (CLI) | payer MEDICAID, SELFPAY ==
[2019-11-11 11:53] VITALS: BMI 33.6
[2020-03-22 17:04] LABS: hCG Titer Quant., Serum 978 mIU/mL (1-3)
== END ==
PROVIDERS: Referring Provider Obstetrics & Gynecology; Visit Provider Obstetrics & Gynecology
DX: O20.0 Threatened abortion (principal); Z3A.00 Weeks of gestation of pregnancy not specified
CPT/HCPCS: 36415; 84702

== ENCOUNTER → 2020-03-24 16:01 | Outpatient (CLI) | payer MEDICAID, SELFPAY ==
[2019-11-11 11:53] VITALS: BMI 33.6
[2020-03-24 18:11] LABS: hCG Titer Quant., Serum 2281 mIU/mL (1-3)
== END ==
PROVIDERS: Referring Provider Obstetrics & Gynecology; Visit Provider Obstetrics & Gynecology
DX: O20.0 Threatened abortion (principal); Z3A.00 Weeks of gestation of pregnancy not specified
CPT/HCPCS: 36415; 84702

== ENCOUNTER → 2020-04-26 12:07 | Outpatient (CLI) | payer MEDICAID, SELFPAY ==
[2020-04-26 11:17] VITALS: BMI 33.6
[2020-04-26 13:45] LABS: ALB/GLOB Ratio 0.9 RATIO (0.9-2.4); AST(SGOT) 107 U/L (15-37); Alanine Aminotransfer ALT/SGPT 110 U/L (13-56); Albumin, Serum 3.1 g/dL (3.2-5.0); Alkaline Phosphatase 61 U/L (45-117); Anion Gap 7 (5-15); BUN 6 mg/dL (7-18); BUN/Creat Ratio 9.9 RATIO (10-20); Calcium,Total 8.1 mg/dL (8.5-10.1); Chloride 104 mmol/L (98-107); EST Glomerular Filtration Rate 120 mL/min (>60); Est Glom Filt Rate - Afr Amer 145 mL/min (>60); Globulin 3.5 g/dL (2.2-4.2); Glucose 112 mg/dL (74-106); Glucose Challenge Gest 1H 50g 112 mg/dL (70-140); Potassium 3.4 mmol/L (3.5-5.1); Protein, Total 6.6 g/dL (6.4-8.2); Sodium Level 135 mmol/L (136-145)
[2020-04-26 14:12] LABS: NATERA MAILED SPECIMEN
[2020-04-26 14:36] LABS: HIV - WCH Non-Reactive (Nonreactive); Hepatitis B Surface Antigen Non-Reactive (Nonreactive); Rubella IgG 37.7 IU/mL
[2020-04-26 14:39] LABS: Hepatitis C Antibody REACTIVE (Nonreactive)
[2020-04-26 18:52] LABS: Amphetamine Urine VISTA NEGATIVE (<1000 ng/mL); Barbiturate Urine VISTA NEGATIVE (< 200 ng/mL); Benzodiazepine Urine VISTA NEGATIVE (< 200 ng/mL); Cocaine Urine VISTA NEGATIVE (< 300 ng/mL); Ecstacy Urine VISTA NEGATIVE (< 500 ng/mL); Methadone Urine VISTA NEGATIVE (< 300 ng/mL); PCP Urine VISTA NEGATIVE (< 25 ng/mL); THC Urine VISTA NEGATIVE (< 50 ng/mL); Vista UDS pH Range 7
[2020-04-26 20:04] LABS: Chlamydia Trachomatis by PCR Negative (Negative); Neisserai gonorrhoeae by PCR Negative (Negative); Probe Check PASS; Sample Adequacy Control PASS; Specimen Processing Control PASS
[2020-04-29 03:25] LABS: Rapid Plasmin Reagin (RPR) NONREACTIVE (NONREACTIVE)
== END ==
PROVIDERS: Referring Provider Obstetrics & Gynecology; Visit Provider Obstetrics & Gynecology
DX: Z34.90 Encounter for supervision of normal pregnancy, unspecified, unspecified trimester (principal); B19.20 Unspecified viral hepatitis C without hepatic coma
CPT/HCPCS: 36415; 80053; 80307; 82950; 86592; 86703; 86762; 86803; 86850; 86900; 86901; 87086; 87088; 87340; 87491; 87591

== ENCOUNTER → 2020-09-15 14:33 | Outpatient (CLI) | payer MEDICAID, SELFPAY ==
[2020-09-15 14:11] VITALS: BMI 37.1
[2020-09-15 15:25] LABS: Absolute Lymphocyte Count 1.66 X10^3/uL (0.83-4.51); Absolute Neutrophil Count 5.4 X10^3/uL (2.0-7.7); Basophil# 0.01 X10^3/uL; Basophil% 0.1 % (0-1); Eosinophil# 0.06 X10^3/uL; Eosinophils% 0.8 % (0-5); Hematocrit 33.4 % (37-47); Hemoglobin 10.9 g/dL (12.0-15.0); Lymphocyte # 1.66 X10^3/ul (4.0); Lymphocyte % 22.1 % (19-41); Mean Corp Hgb Conc 32.6 g/dL (32-36); Mean Corpuscular Hgb 32.2 pg (27.0-32.0); Mean Corpuscular Volume 98.5 fL (81-99); Mean Platelet Vol. 9.8 fl (6.2-12.0); Monocyte# 0.35 X10^3/uL; Monocyte% 4.7 % (0-10); NRBC Flagged by Analyzer 0 % (0-5); Neutrophil % 71.8 % (47-70); Platelet Count 143 K/mm3 (150-450); RBC Distribution Width CV 12.3 % (11.6-14.6); RBC Distribution Width SD 44.6 fl (35.1-43.9); Red Blood Count 3.39 M/mm3 (4.2-5.4); White Blood Count 7.5 K/mm3 (4.4-11.0)
[2020-09-15 15:36] LABS: Glucose Challenge Gest 1H 50g 122 mg/dL (70-140)
== END ==
PROVIDERS: Referring Provider Obstetrics & Gynecology; Visit Provider Obstetrics & Gynecology
DX: O09.90 Supervision of high risk pregnancy, unspecified, unspecified trimester (principal); Z3A.00 Weeks of gestation of pregnancy not specified; Z13.1 Encounter for screening for diabetes mellitus
CPT/HCPCS: 36415; 82950; 85025

== ENCOUNTER → 2020-10-07 11:22 | Outpatient (CLI) | payer MEDICAID, SELFPAY ==
[2020-10-07 10:39] VITALS: BMI 36.5
--- NOTE | 2020-10-07 11:23 | US_ITS ---
STUDY: OBSTETRICAL ULTRASOUND - BIOPHYSICAL PROFILE REASON FOR EXAM: Female, 35 years old well being LMP: 02/14/2020. PRIOR ULTRASOUND: None. TECHNIQUE: Transabdominal TECHNICAL QUALITY: Adequate. FINDINGS: There is a single intrauterine fetus. The fetus is in a cephalic presentation. There is demonstrated cardiac activity with a heart rate of 140 bpm. There is a normal amniotic fluid volume. The largest amniotic fluid pocket measures 3.8 cm. The amniotic fluid index (PJ) is 12.1 cm. The placenta is anterior in location and is not low lying. There are Grade 1 placental changes. BIOPHYSICAL PROFILE: Breathing Movements (FBM): 2 Gross Body Movements (GBM): 2 Tone (FT): 2 Amniotic Fluid Volume (AFV): 2 TOTAL SCORE: 8 / 8 US/Biophysical Prof W/O Non Stres IMPRESSION: Normal biophysical profile of 05/22. Electronically Signed: Tomas Rojas, at 12:37 EST , Service support ,
== END ==
PROVIDERS: Referring Provider Nurse Practitioner Women's Health; Visit Provider Nurse Practitioner Women's Health
DX: Z36.89 Encounter for other specified antenatal screening (principal)
CPT/HCPCS: 76819

== ENCOUNTER → 2020-10-28 16:32 | Outpatient (CLI) | payer MEDICAID, SELFPAY ==
[2020-10-21 10:31] VITALS: BMI 36.8
== END ==
PROVIDERS: Visit Provider Obstetrics & Gynecology
DX: Z34.90 Encounter for supervision of normal pregnancy, unspecified, unspecified trimester (principal)
CPT/HCPCS: 87081

== ENCOUNTER → 2020-11-11 10:33 | Outpatient (CLI) | payer MEDICAID, SELFPAY ==
[2020-10-21 10:31] VITALS: BMI 36.8
[2020-11-11 10:10] VITALS: BMI 36.8
== END ==
PROVIDERS: Visit Provider Nurse Practitioner Women's Health
DX: Z11.59 Encounter for screening for other viral diseases (principal)
CPT/HCPCS: 87635; C9803; U0005; U0003

== ENCOUNTER 2020-11-15 07:05 | Inpatient (IN) | payer MEDICAID, SELFPAY ==
[2020-11-11 10:10] VITALS: BMI 36.8
[2020-11-15] VITALS (41 sets, daily range): BP systolic 114–145; BP diastolic 55–97; PULSE 59–97; TEMP 36.5–37.8; O2SAT 96–100; BMI 37.0
[2020-11-15] MEDS: Lactated Ringers 1,000 ML 50 ML IV (07:45)
[2020-11-15 08:03] LABS: Absolute Neutrophil Count 3.8 X10^3/uL (2.0-7.7); Basophil# 0.02 X10^3/uL; Basophil% 0.3 % (0-1); Eosinophil# 0.03 X10^3/uL; Eosinophils% 0.5 % (0-5); Hematocrit 35.2 % (37-47); Mean Corp Hgb Conc 34.1 g/dL (32-36); Mean Corpuscular Hgb 32.7 pg (27.0-32.0); Mean Corpuscular Volume 95.9 fL (81-99); Mean Platelet Vol. 10.3 fl (6.2-12.0); Monocyte# 0.46 X10^3/uL; Monocyte% 7.8 % (0-10); NRBC Flagged by Analyzer 0 % (0-5); Neutrophil % 64.1 % (47-70); Platelet Count 177 K/mm3 (150-450); RBC Distribution Width CV 12.1 % (11.6-14.6); RBC Distribution Width SD 42.2 fl (35.1-43.9); Red Blood Count 3.67 M/mm3 (4.2-5.4); White Blood Count 5.9 K/mm3 (4.4-11.0)
[2020-11-15] MEDS: miSOPROStol 25 MCG TABLET VAGINAL (08:23)
[2020-11-15] MEDS: BUPRENORPHINE HCL 8 MG TAB.SUBL SL ×2 (10:10→17:27)
[2020-11-15] MEDS: Lactated Ringers 500 ML 999 ML IV ×2 (10:21→12:13)
--- NOTE | 2020-11-15 10:28 | HP.PCM_ITS ---
- Problem List (1) Lab test negative for COVID-19 virus Status: Acute Comment: 11/15/20 (2) 37 weeks gestation of Status: Acute Comment: electronic test ordered 10/29/20 (scheduled for 11/11/2020 at 0955) (3) Advanced maternal age, primigravida in third trimester, antepartum Status: Acute Comment: nl NIPT (4) Tobacco abuse Status: Acute Comment: encouraged cessation, down to 5 cig per day (5) Nausea/vomiting in Status: Acute Comment: cherifran (6) Status: Acute Qualifiers: Comment: NIPT low risk. Aware she is carrier of SMA, FOB is negative. 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 (9) History of CHF (congestive heart failure) Status: Acute Comment: age 20; no recurrence, drug related. 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 Random tox screen(05/08;07/04 Neg) MFM consult (11) Hepatitis C Status: Chronic Qualifiers: Comment: baseline labs done. check viral load/LFTs @ trimester. APL testing negative. Growth scans q4w. NL growth 09/30 History and Physical Date of Admission: 11/15/20 OFFICE PROCEDURES Office Procedure Documentation entered by Lolis Maya MD 11/11/20 13:52: OB NST Non-Stress Test Indications for Monitoring: Yes previous Heart Rate Baseline: 140 Heart Rate Variability: moderate Movement: Present Heart Rate Accelerations: Present Decelerations: Absent Contractions: Absent Impression: Yes Reactive Non-Stress Test Results POC Urinalysis 2 Dip (Clinic) Office Urine Glucose Negative Last Edit by Alaina Bradshaw on 11/11/20 10:25 Office Urine Protein Negative Last Edit by Alaina Bradshaw on 11/11/20 10:25 Intake Vital Signs 11/11/20 Height 5 ft 7 in 11/11/20 Weight: 235 lb 4 oz 11/11/20 BMI 36.8 11/11/20 BP 138/80 H Intake Visit Reasons: 38 WK OB/NST Field Observer Required: No Is patient in pain?: No Allergies No Known Allergies Allergy (Verified 11/11/20 10:10) Medications buprenorphine HCl 8 mg sublingual tablet 8 mg SUBLINGUAL BID 03/05/19 [History Confirmed 11/11/20] ondansetron 4 mg disintegrating tablet 4 mg PO Q4H PRN #60 tab 04/26/20 [Rx Confirmed 11/11/20] vitamin#30 30 mg iron-10 mg iron-folic acid 1 mg-omg3 capsule cap PO 04/26/20 [History Confirmed 11/11/20] Last Menstral Period: 02/14/20 Zika: Zika virus screening: Negative : No PFSH PFSH Medical History Hepatitis C (Chronic) Congestive heart failure (Acute) Endometriosis (Acute) Surgical History Status post amputation of finger (Acute) Status post skin graft (Acute) S/P laparoscopy (Resolved) Family History Father Cancer Mother COPD (chronic obstructive pulmonary disease) Grandmother COPD (chronic obstructive pulmonary disease) Social History (Updated 11/11/20 @ 13:[address] Lolis Maya MD) Smoking Status: Light Smoker (<10/day) alcohol intake: never substance use type: former substance user caffeine: Yes what type of physical activity do you participate in: walking seatbelt use: always do you feel safe at home: Yes additional social history: Engaged- Aldo- Works at [employer] Patient works at [employer] History 4 Elective abortions Hx Para 3 Spontaneous abortions Hx # Term Pregnancies Ectopic pregnancies Hx # Pregnancies Multiple births # of living children Past Pregnancies Del. Date Name GA/Weeks Outcome Route Bth Weight Infant Gen Labor Lgth Anesthesia Del Locatn Provider FOB 10/16/13 Chance 40 live - full term 7lbs 9oz Male 2 0 hours epidural [facility] Dr. Sherie Carlson 09/16/16 Cayson still Male [facility] Dr. Lennox Carlson 09/29/19 Melvin live - full term NS VD Male [facility] Dr. High Delivery Date: 10/16/13 No issues during or delivery. Alaina Bradshaw Delivery Date: 09/16/16 No issues during . Delivered at 6 months Alaina Bradshaw Delivery Date: 09/29/19 Subutex, Hep C Alaina Bradshaw HPI 38 WK OB/NST: Details: DIANE WANG is a 35 year old @39w1d presents for IOL h/o IUFD and on suboxone. OB Visit PASHA Calculator Estimated Delivery Date Method Current WG Current Estimate 11/20/20 LMP (Uncertain) 38w 5d Other Estimates 11/22/20 Ultrasound #1 38w 3d Expected Delivery Route/Plan discussed IOL at 39 weeks 11/15 PPTL Labor Preferences- CB/BF classes: no labor support person: Aldo labor intervention preferences: open to standard interventions pain management options preferred: epidural cut cord/dad catch: both : yes PP control planned: PPTL discussed possible routes of delivery and associated risks: discussed possible delivery modalities and possible indications for each including R/B/A of , VAVD, and CS. questions answered. special requests: no Specific Issue/Plans flu vaccine: no tdap vaccine: 08/18 rhogam: NA LARC form signed: yes Problem list reviewed and updated with the most current plan of care details and appropriate orders placed. Relevant counseling for the gestational age provided. Continue routine care and follow up unless otherwise noted in visit notes/problem list details Initial Weight: 237 lb Date EGA Weight BP Urine Prot Glucose FHR FuHt Pres Dilation Effaced St Visit Note 04/26/20 10w 2d 237 lb (+0 oz) 112/64 165 SM- CRL 2.8 cm cons with LMP. 06/03/20 15w 5d 236 lb (-16 oz) 98/66 Negative Negative 160 SM- no vb lof cramping SM- no vb lof crampingplan afp next visit 07/08/20 20w 5d 234 lb (-3 lb) 130/80 150 GP - no cramping or VB. +FM. Anatomy scan normal. Denies complaints. 08/18/20 26w 4d 233 lb (-4 lb) 118/80 Negative Negative 145 26 SM- no vb cramping 09/15/20 30w 4d 237 lb 6 oz (+6 oz) 138/70 Negative Negative 120 30 GP - no LOF, VB, DFM, reg ctx. GCT and 3rd trimester labs today. Reports had TDAP last visit. Flu shot today. Plan to start growths at 32 weeks. Discussed labor preferences and routes of delivery. 09/29/20 32w 4d 235 lb 4 oz (-1 lb 12 oz) 124/72 120 32 GP - no LOF, VB, DFM, ctx. T19 and LARC forms signed today. NST reactive. 10/07/20 33w 5d 233 lb (-4 lb) 130 SM- nst 10/21/20 35w 5d 235 lb (-2 lb) Negative Negative 145 SM- no vb lof good fm no regula ctx 10/28/20 36w 5d 116/72 Negative Negative 135 37 SM- no vb lof good fm no regular ctx 11/05/20 37w 6d 235 lb (-2 lb) 104/70 Negative Negative 130 SM- no vb lof good fm no regular ctx 11/11/20 38w 5d 235 lb 4 oz (-1 lb 12 oz) 138/80 Negative Negative 140 GP - no LOF, VB, DFM, ctx. IOL scheduled for 11/15 at 0700. ACOG First Trimester First Trimester: Desire for , Anticipated Course of Care, Toxoplasmosis Precations, Use of Any medications, Sexual activity, Exercise, Sauna/Hot tub use, Seat Belt use, , Indications for US and Screening for Aneuploidy; discussed Alcohol, discussed Tobacco Cessation, discussed Illicit/Recreational Drug/Substance Use, discussed Intimate Partner Violence, discussed Unstable Housing or discussed Environmental/Work Hazards Second Trimester Second Trimester: Signs and Symptoms of Labor, Selecting a care provider, Reproductive Life Planning, Care Planning, Tobacco Cessation, Depression/Anxiety and Intimate Partner Violence Third Trimester Third Trimester: Pain Management Plans, Labor support person(s), Immediate Larc and Movement Monitoring; discussed Trial of Labor after Counseling or discussed Circumcision preference Diagnostics Diagnostics Diagnostics Glucose 1 Hr 50 gm 122 mg/dL (70-140) 09/15/20 Hgb 10.9 g/dL (12.0-15.0) L 09/15/20 Hct 33.4 % (37-47) L 09/15/20 Details: HIV: Urine Culture: Sequential Screen: NIPT Screen: ROS Const Reports system reviewed and no additional complaints, except as docu Eyes Reports system reviewed and no additional complaints, except as docu ENT Reports system reviewed and no additional complaints, except as docu Card Reports system reviewed and no additional complaints, except as docu Resp Reports system reviewed and no additional complaints, except as docu GI Reports system reviewed and no additional complaints, except as docu Reports system reviewed and no additional complaints, except as docu, Denies abnormal vaginal bleeding, Denies painful urination, Denies pelvic pain, Denies vaginal discharge, Denies vaginal odor, Denies vaginal itching Musc Reports system reviewed and no additional complaints, except as docu Skin/Breast Reports system reviewed and no additional complaints, except as docu Neuro Yes system reviewed and no additional complaints, except as docu Psych Reports system reviewed and no additional complaints, except as docu Endo Reports system reviewed and no additional complaints, except as docu Exam Const General: cooperative, healthy appearing, comfortable, no acute distress, well developed, well groomed Nutritional Appearance: average body habitus, well nourished Orientation: alert, awake, oriented x3 [facility] Head: normal to inspection, normocephalic, atraumatic Eyes Pupils: PERRL, accommodation normal Resp Effort & Inspection: normal respiratory effort, able to speak in complete sentences, symmetric chest movement Cardio Rate: regular rate GI Palpation: soft, no guarding, no masses, nontender Skin General: no rashes or lesions noted, elasticity normal, turgor normal Neuro General: alert, awake, oriented x3 Cranial Nerves: CN's II-XI intact bilaterally, sense of smell intact, PERRL, accommodation normal, EOM intact bilaterally Speech: speech normal Gait: normal gait Psych Appearance: grossly normal, well kempt Mental Status: mental status grossly normal Mood: congruent mood Affect: normal affect Speech and Movement: speech and movement normal Attitude: cooperative Thought Process: normal Thought Content: normal Judgment: judgment good Results POC Urinalysis 2 Dip (Clinic) Office Urine Glucose Negative Last Edit by Alaina Bradshaw on 11/11/20 10:25 Office Urine Protein Negative Last Edit by Alaina Bradshaw on 11/11/20 10:25 Assessment & Plan Problems 1. 37 weeks gestation of Z3A.37 electronic test ordered 10/29/20 (scheduled for 11/11/2020 at 0955) 2. Advanced maternal age, primigravida in third trimester, antepartum O09.513 nl NIPT 3. Tobacco abuse Z72.0 encouraged cessation, down to 5 cig per day 4. Nausea/vomiting in O21.9 zofran 5. 38 weeks gestation of Z3A.38 NIPT low risk. Aware she is carrier of SMA, FOB is negative. NL growth 08/02, 09/02 37% growth 6. Supervision of high risk , antepartum O09.90 PRR PASHA 11/19/2020 Girl PC:Melvin Rothman 7. 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 8. History of CHF (congestive heart failure) Z86.79 age 20; no recurrence, drug related. 9. History of drug abuse in remission Z87.898 Heroin use, none since 2015. On suboxone. Random tox screen(05/08;07/04 Neg) MFM consult 10. Hepatitis C B19.20 baseline labs done. check viral load/LFTs @ trimester. APL testing neg ative. Growth scans q4w. NL growth 09/30 Patient presents IOL, plan management for with cytotec the fb/pitocin/AROM. Pain management: plans epidural. GBS negative. Management of any complications: hep Ca, h/o drug use on suboxone. I have reviewed the [facility] and made any clinically relevant updates. Orders Orders: POC Urinalysis 2 Dip (Clinic) Today OB NST Today B19.20 Coding Level of Care Code Off vis,est,level 3 Diagnoses 37 weeks gestation of Z3A.37 Advanced maternal age, primigravida in third trimester, antepartum O09.513 Tobacco abuse Z72.0 Nausea/vomiting in O21.9 38 weeks gestation of Z3A.38 ??Weeks of gestation: 38 weeks Supervision of high risk , antepartum O09.90 Gene mutation Z15.89 History of CHF (congestive heart failure) Z86.79 History of drug abuse in remission Z87.898 Hepatitis C B19.20
[2020-11-15 10:31] LABS: Amphetamine Urine VISTA NEGATIVE (<1000 ng/mL); Barbiturate Urine VISTA NEGATIVE (< 200 ng/mL); Benzodiazepine Urine VISTA NEGATIVE (< 200 ng/mL); Cocaine Urine VISTA NEGATIVE (< 300 ng/mL); Ecstacy Urine VISTA NEGATIVE (< 500 ng/mL); Methadone Urine VISTA NEGATIVE (< 300 ng/mL); PCP Urine VISTA NEGATIVE (< 25 ng/mL); THC Urine VISTA NEGATIVE (< 50 ng/mL); Vista UDS pH Range 6
[2020-11-15] MEDS: Oxytocin 30 units/NS 500 ml 30 UNITS/500 ML IV.SOLN IV (12:44)
[2020-11-15 13:09] LABS: BUP Internal Control LINE = VALID (VALID); Buprenorphine Drug Screen Positive (<10 ng/mL)
[2020-11-15] MEDS: fentaNYL-bupivacaine (epidural) 100 ML BAG EPIDURAL ×2 (13:13→17:28)
[2020-11-15] MEDS: Lactated Ringers 1,000 ML 200 ML IV (15:36)
--- NOTE | 2020-11-15 18:14 | PCM.OPRPT ---
Problem List (1) Lab test negative for COVID-19 virus Status: Acute Comment: 11/15/20 (2) 37 weeks gestation of Status: Acute Comment: electronic test ordered 10/29/20 (scheduled for 11/11/2020 at 0955) (3) Advanced maternal age, primigravida in third trimester, antepartum Status: Acute Comment: nl NIPT (4) Tobacco abuse Status: Acute Comment: encouraged cessation, down to 5 cig per day (5) Nausea/vomiting in Status: Acute Comment: zofran (6) Status: Acute Qualifiers: Comment: NIPT low risk. Aware she is carrier of SMA, FOB is negative. 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 (9) History of CHF (congestive heart failure) Status: Acute Comment: age 20; no recurrence, drug related. 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 Random tox screen(05/08;07/04 Neg) MFM consult (11) Hepatitis C Status: Chronic Qualifiers: Comment: baseline labs done. check viral load/LFTs @ trimester. APL testing negative. Growth scans q4w. NL growth 09/30 Vaginal Delivery Maternal Presentation: Medically Indicated Induction Method of Induction: Pitocin, Cytotec Amniotic Membrane Rupture Type: Artificial Amniotic Fluid Description: Clear Final PASHA: 11/21/20 Gestational age: 39 Weeks and 1 Days Date of Procedure: 11/15/20 Pre-Operative Diagnosis: iol h/o demise Post-Operative Diagnosis: same Surgery/ Procedure Performed: Spontaneous Vaginal Delivery Type of Anesthesia: Epidural Description of Procedure: Patient began pushing and delivered the head in the ERIKA presentation. The head was delivered atraumatically . The anterior and posterior shoulders delivered without complication followed by the rest of the and the was placed on the maternal abdomen. Delayed cord clamping was employed for approximately 60 seconds. Cord was clamped and cut and gentle traction was applied to the cord and the placenta delivered spontaneously immediately following it was noted to be intact with three-vessel cord. The perineum and vagina were inspected and noted to have no laceration. EBL was 100 cc. Patient and infant tolerated delivery well. Presentation: ERIKA Placental Delivery Description: Spontaneous Placenta Disposition: [facility] Cord Vessel Description: 3 Vessels Cord Entanglement: None Estimated Blood Loss: 100 Infant A gender: Female Episiotomy Description: None Laceration: None Medications given after delivery: IV Pitocin Complications: None Multi Select Codes - Urinary/Genital Urinary/Genital CPT Codes: 98558 Vaginal Delivery+ Care([facility])
[2020-11-15] MEDS: Oxytocin 30 units/NS 500 ml 30 UNITS/500 ML IV.SOLN 334 UNITS IV (18:23)
--- NOTE | 2020-11-15 18:34 | DCINST_ITS ---
Discharge Diet: No Restrictions Discharge Activity: Return to Normal Activity, May not drive while taking narcotic pain medications., May Shower May resume sexual activity in: 4-6 weeks Call your doctor if your incision/area has: Continuous Slow Oozing, Sudden Increased Bleeding, Increased Pain/ Swelling, Increased Redness, Foul Smelling Discharge Additional Instructions: If you experience any of the following, contact your healthcare provider. * Bleeding that soaks a pad every hour for 2 hours * Fever 100.4 or higher * Unrelieved incision or abdominal pain * Swelling, redness, discharge or bleeding from your incision or episiotomy site * Your incision begins to separate * Problems urinating (including inability to urinate or burning while urinating). * Visual changes * Severe headache * Flu-like symptoms * Pain or redness in one of both of your breasts * Pain, warmth, tenderness or swelling in your legs, especially the calf area * Frequent nausea and vomiting * Symptoms of depression or anxiety If you experience any of the following, call 911 or go to the nearest Emergency Room. * Chest pain * Problems breathing * Seizure activity * Partial or complete paralysis of a body part, slurred speech, weakness or drooping of the face, or a sudden inability to walk or hold your balance Allergies/Adverse Reactions: Allergies No Known Allergies Allergy (Verified 11/11/20 10:10) Medications to take at Discharge buprenorphine HCl 8 mg sublingual tablet 8 mg SUBLINGUAL BID 03/05/19 ondansetron 4 mg disintegrating tablet 4 mg PO Q4H PRN #60 tab 04/26/20 vitamin#30 30 mg iron-10 mg iron-folic acid 1 mg-omg3 capsule 1 cap PO DAILY 04/26/20 Naproxen [Naprosyn] 250 - 500 mg PO Q8H PRN PRN #30 tab 11/15/20 The following prescriptions were given: Naproxen [Naprosyn] 250 - 500 mg PO Q8H PRN PRN #30 tab PRN Reason: MILD PAIN Transmission Status: Pending to [facility] Please Follow Up With: Geetha High MD - [phone] When: Call to make an appointment with your doctor in 6 weeks. If you had elevated Blood pressure or 4th degree laceration you will need to be seen in 2 weeks. Primary Care Physician: Care Physician,No Primary [Primary Care Provider] - Test Results: Test results from this visit will be discussed in further detail at your follow- up appointment, if applicable.
[2020-11-15] MEDS: 0.9% Saline Lock 10 ML Syringe IV (21:09)
[2020-11-15] MEDS: Naproxen 250 MG Tablet 500 MG PO (22:50)
--- NOTE | 2020-11-15 23:00 | NURSING ---
Antonia completed. Pt desires to bottle feed, like previous children. Pt wanted to breast feed the first couple times to give babe colostrum. Pt states does not want babe to continue to get Subutex via breast milk, and will formula feed.
[2020-11-16] VITALS (7 sets, daily range): BP systolic 112–130; BP diastolic 61–76; PULSE 63–71; RESP 16–20; TEMP 36–36.8; O2SAT 97–98
--- NOTE | 2020-11-16 09:10 | PCM.PN.OB ---
Patient Problems: Active and Suspected Problems (Last Reviewed 11/11/20 @ 10:09 by Alaina Bradshaw) Lab test negative for COVID-19 virus (Acute) 11/15/20 37 weeks gestation of (Acute) electronic test ordered 10/29/20 (scheduled for 11/11/2020 at 0955) Advanced maternal age, primigravida in third trimester, antepartum (Acute) nl NIPT Tobacco abuse (Acute) encouraged cessation, down to 5 cig per day Nausea/vomiting in (Acute) zofran (Acute) NIPT low risk. Aware she is carrier of SMA, FOB is negative. NL growth 08/02, 09/02 37% growth Supervision of high risk , antepartum (Acute) PRR PASHA 11/19/2020 Girl PC:Melvin Rothman Gene mutation (Acute) Patient is a carrier for spinal muscular atrophy- FOB tested and neg. History of CHF (congestive heart failure) (Acute) age 20; no recurrence, drug related. Subjective: Patient doing well without complaints. Tolerating PO. Ambulating and voiding without difficulty. feeding well. Denies chest pain, shortness of breath, calf pain/swelling, fevers, chills, lightheadedness. - Physical Exam Vitals/I&O's: Vital Signs Temp Pulse Resp BP Pulse Ox 97.6 F L 71 16 123/76 H 100 11/16/20 04:45 11/16/20 04:45 11/16/20 04:45 11/16/20 04:45 11/15/20 18:41 Oxygen Delivery Method Room Air Weight: 236 lb 15.951 oz Body Mass Index (BMI) 37.0 Intake and Output for Last 24 Hours 11/14/20 11/15/20 11/16/20 23:59 23:59 23:59 Intake Total 3596.78 / 3596.78 Output Total 425 / 425 550 / 550 Balance 3171.78 / 3171.78 -550 / -550 General: Alert, Oriented x3 Abdomen: Soft, Non Tender, - - FF below U Microbiology Past 72 Hours 11/15/20 08:15 Mucosa - Nose SARS-CoV-2 Antigen (Rapid) - Final Laboratory Results 11/15/20 09:25: Urine Opiates Screen NEGATIVE, Urine Methadone Screen NEGATIVE, Ur Barbiturates Screen NEGATIVE, Ur Phencyclidine Scrn NEGATIVE, Ur Amphetamines Screen NEGATIVE, U Methamphetamin-MDMA NEGATIVE, U Benzodiazepines Scrn NEGATIVE, Urine Cocaine Screen NEGATIVE, U Cannabinoids Screen NEGATIVE, Ur Drug Screen Comment 11/15/20 09:25: Ur Buprenorphine Scrn Positive H, Ur Drug Screen Comment Current Medications Acetaminophen (Acetaminophen 500 Mg Tablet) 1,000 mg PO Q8H PRN PRN PRN Reason: Pain Score 1-3 Bisacodyl (Bisacodyl 10 Mg Suppository) 10 mg RECTAL UD PRN PRN Reason: If no BM Buprenorphine HCl (Buprenorphine Hcl 8 Mg Tab.Subl) 8 mg SL 0900,1700 SHANTEL Dibucaine (Dibucaine 30 Gm Tube) 1 applic TOPICAL TID PRN PRN; Protocol PRN Reason: Discomfort Hydrocortisone (Hydrocortisone 2.5% Crm) 1 applic TOPICAL TID PRN PRN; Protocol PRN Reason: Discomfort Methylergonovine Maleate (Methylergonovine 0.2 Mg/Ml Ampul) 0.2 mg IM X1 PRN PRN Reason: Excess bleeding/uterine atony Naproxen (Naproxen 250 Mg Tablet) 500 mg PO Q8H PRN PRN PRN Reason: Pain Score 1-3 Last Admin: 11/15/20 22:50 Dose: 500 mg Documented by: Ondansetron HCl (Ondansetron Odt 4 Mg Tablet) 4 mg PO Q4H PRN PRN Reason: nausea and vomiting Ondansetron HCl (Ondansetron 4 Mg/2 Ml Vial) 4 mg IV Q4H PRN PRN PRN Reason: Nausea Multivit/Folic Acid/Iron ( Vits Tablet) 1 tablet PO DAILY@1200 SHANTEL Senna/Docusate Sodium (Senna/Docusate Sodium 1 Tablet) 1 - 2 tablet PO DAILY PRN PRN PRN Reason: Constipation Simethicone (Simethicone 80 Mg Tablet) 80 mg PO PCHS PRN PRN Reason: Indigestion/Stomach pain Sodium Chloride (0.9% Saline Lock 10 Ml Syringe) 5 - 15 ml IV UD PRN PRN Reason: SALINE FLUSH Last Admin: 11/15/20 21:09 Dose: 10 ml Documented by: Medical Necessity - Tobacco Use Smoking Status: Light Smoker (<10/day) Assessment/Plan All Active Problems (Last Reviewed 11/11/20 @ 10:09 by Alaina Bradshaw) Lab test negative for COVID-19 virus (Acute) 37 weeks gestation of (Acute) Advanced maternal age, primigravida in third trimester, antepartum (Acute) Tobacco abuse (Acute) Nausea/vomiting in (Acute) (Acute) Supervision of high risk , antepartum (Acute) Gene mutation (Acute) History of CHF (congestive heart failure) (Acute) s/p PPD # 1 1. routine post delivery care 2. breast feeding- support given 3. rh positive 4. rubella immune
[2020-11-16] MEDS: BUPRENORPHINE HCL 8 MG TAB.SUBL SL ×2 (09:37→17:13)
[2020-11-16] MEDS: Prenatal Vits Tablet 1 TABLET PO (09:37)
[2020-11-17 01:06] VITALS: BP 113/55; PULSE 69; RESP 16; TEMP 36.4
--- NOTE | 2020-11-17 07:57 | PCM.PN.OB ---
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 History of CHF (congestive heart failure) (Acute) age 20; no recurrence, drug related. Subjective: Patient doing well without complaints. Tolerating PO. Ambulating and voiding without difficulty. Feeding well. Denies chest pain, shortness of breath, calf pain/swelling, fevers, chills, lightheadedness. - Physical Exam Vitals/I&O's: Vital Signs Temp Pulse Resp BP Pulse Ox 97.6 F L 69 16 113/55 L 98 11/17/20 01:06 11/17/20 01:06 11/17/20 01:06 11/17/20 01:11/16/20 16:00 Oxygen Delivery Method Room Air Weight: 236 lb 15.951 oz Body Mass Index (BMI) 37.0 Intake and Output for Last 24 Hours 11/15/20 11/16/20 11/17/20 23:59 23:59 23:59 Intake Total 3596.78 / 3596.78 Output Total 425 / 425 550 / 550 Balance 3171.78 / 3171.78 -550 / -550 General: Alert, Oriented x3, Cooperative, No apparent distress, Well developed, Well nourished HEENT: Atraumatic, PERRLA, EOMI, Normocephalic Neck: Supple, No JVD Lungs: Normal air movement Cardiovascular: Regular rate Abdomen: Soft, Non Tender, Non-Distended, - - fundus firm Extremities: No edema, No Calf Tenderness Neurological: Cranial nerves II-XII grossly intact, Neuro grossly intact Psych/Mental Status: Normal Affect, Appropriate Microbiology Past 72 Hours 11/15/20 08:15 Mucosa - Nose SARS-CoV-2 Antigen (Rapid) - Final Current Medications Acetaminophen (Acetaminophen 500 Mg Tablet) 1,000 mg PO Q8H PRN PRN PRN Reason: Pain Score 1-3 Bisacodyl (Bisacodyl 10 Mg Suppository) 10 mg RECTAL UD PRN PRN Reason: If no BM Buprenorphine HCl (Buprenorphine Hcl 8 Mg Tab.Subl) 8 mg SL 0900,1700 SHANTEL Last Admin: 11/16/20 17:13 Dose: 8 mg Documented by: Dibucaine (Dibucaine 30 Gm Tube) 1 applic TOPICAL TID PRN PRN; Protocol PRN Reason: Discomfort Hydrocortisone (Hydrocortisone 2.5% Crm) 1 applic TOPICAL TID PRN PRN; Protocol PRN Reason: Discomfort Methylergonovine Maleate (Methylergonovine 0.2 Mg/Ml Ampul) 0.2 mg IM X1 PRN PRN Reason: Excess bleeding/uterine atony Naproxen (Naproxen 250 Mg Tablet) 500 mg PO Q8H PRN PRN PRN Reason: Pain Score 1-3 Last Admin: 11/15/20 22:50 Dose: 500 mg Documented by: Ondansetron HCl (Ondansetron Odt 4 Mg Tablet) 4 mg PO Q4H PRN PRN Reason: nausea and vomiting Ondansetron HCl (Ondansetron 4 Mg/2 Ml Vial) 4 mg IV Q4H PRN PRN PRN Reason: Nausea Multivit/Folic Acid/Iron ( Vits Tablet) 1 tablet PO DAILY@1200 SHANTEL Last Admin: 11/16/20 09:37 Dose: 1 tablet Documented by: Senna/Docusate Sodium (Senna/Docusate Sodium 1 Tablet) 1 - 2 tablet PO DAILY PRN PRN PRN Reason: Constipation Simethicone (Simethicone 80 Mg Tablet) 80 mg PO PCHS PRN PRN Reason: Indigestion/Stomach pain Sodium Chloride (0.9% Saline Lock 10 Ml Syringe) 5 - 15 ml IV UD PRN PRN Reason: SALINE FLUSH Last Admin: 11/15/20 21:09 Dose: 10 ml Documented by: Medical Necessity - Tobacco Use Smoking Status: Light Smoker (<10/day) Assessment/Plan All Active Problems (Last Reviewed 11/11/20 @ 10:09 by Alaina Bradshaw) Tobacco abuse (Acute) Gene mutation (Acute) History of CHF (congestive heart failure) (Acute) 37 weeks gestation of (Resolved) Advanced maternal age, primigravida in third trimester, antepartum (Resolved) Lab test negative for COVID-19 virus (Resolved) Nausea/vomiting in (Resolved) (Resolved) Supervision of high risk , antepartum (Resolved) s/p PPD # 2 1. routine post delivery care 2. breast feeding- support given 3. rh positive 4. rubella immune
[2020-11-17] MEDS: BUPRENORPHINE HCL 8 MG TAB.SUBL SL ×2 (09:13→17:25)
[2020-11-17] MEDS: Prenatal Vits Tablet 1 TABLET PO (09:13)
[2020-11-17 09:15] VITALS: BP 121/65; PULSE 63; RESP 18; TEMP 36.7; O2SAT 97
[2020-11-17 15:15] VITALS: BP 119/74; PULSE 96; RESP 16; TEMP 36.3; O2SAT 97
[2020-11-17] MEDS: Senna/Docusate Sodium 1 Tablet PO (17:24)
--- NOTE | 2020-11-19 16:15 | CASEMGMT ---
Social Work Labor and Delivery Unit Social work assessment was completed due to maternal use of prescribed subutex and exposure in utero. Full assessment documented in the baby's chart, which is attached to this delivery record. See baby's chart for further details. -ARABELLA [place], LUMITE INJECTOR
== END 2020-11-17 19:00 | disposition home or self-care (01) | DRG 560 ==
PROVIDERS: Admitting Provider Obstetrics & Gynecology; Referring Provider Obstetrics & Gynecology; Visit Provider Obstetrics & Gynecology
DX: O98.42 Viral hepatitis complicating childbirth (principal); B18.2 Chronic viral hepatitis C; F17.210 Nicotine dependence, cigarettes, uncomplicated; O99.334 Smoking (tobacco) complicating childbirth; Z37.0 Single live birth; Z3A.37 37 weeks gestation of pregnancy
CPT/HCPCS: 59025; 59050; 80307; 85025; 86850; 86900; 86901; 87426; 99218; J7120; A4216; G0378

== ENCOUNTER → 2021-07-23 10:36 | Outpatient (CLI) | payer MEDICAID, SELFPAY ==
[2021-07-23 11:12] LABS: Absolute Lymphocyte Count 1.01 X10^3/uL (0.83-4.51); Absolute Neutrophil Count 2.9 X10^3/uL (2.0-7.7); Basophil# 0.04 X10^3/uL; Basophil% 0.9 % (0-1); Eosinophil# 0.11 X10^3/uL; Eosinophils% 2.4 % (0-5); Hematocrit 40.4 % (37-47); Hemoglobin 13.3 g/dL (12.0-15.0); Lymphocyte # 1.01 X10^3/ul (0.83-4.51); Lymphocyte % 22.2 % (19-41); Mean Corp Hgb Conc 32.9 g/dL (32-36); Mean Corpuscular Hgb 32.6 pg (27.0-32.0); Mean Platelet Vol. 10.6 fl (6.2-12.0); NRBC Flagged by Analyzer 0 % (0-5); Neutrophil # 2.87 X10^3/uL (2.7-7.7); Neutrophil % 63.1 % (47-70); Platelet Count 133 K/mm3 (150-450); RBC Distribution Width CV 12.7 % (11.6-14.6); RBC Distribution Width SD 46.3 fl (35.1-43.9); Red Blood Count 4.08 M/mm3 (4.2-5.4); White Blood Count 4.6 K/mm3 (4.4-11.0)
[2021-07-23 11:31] LABS: ALB/GLOB Ratio 0.8 RATIO (0.9-2.4); AST(SGOT) 307 U/L (15-37); Alanine Aminotransfer ALT/SGPT 141 U/L (13-56); Albumin, Serum 3.2 g/dL (3.2-5.0); Alkaline Phosphatase 111 U/L (45-117); Anion Gap 7 (5-15); BUN 9 mg/dL (7-18); Calcium,Total 8.6 mg/dL (8.5-10.1); Chloride 105 mmol/L (98-107); Cholesterol 161 mg/dL (200); Creatinine, Serum 0.69 mg/dL (0.55-1.02); EST Glomerular Filtration Rate 102 mL/min (>60); Est Glom Filt Rate - Afr Amer 123 mL/min (>60); Globulin 4.2 g/dL (2.2-4.2); Glucose 115 mg/dL (74-106); High Density Lipoprotein 31 mg/dL; Potassium 3.8 mmol/L (3.5-5.1); Protein, Total 7.4 g/dL (6.4-8.2); Sodium Level 139 mmol/L (136-145); Triglycerides 123 mg/dL; Very Low Density Lipoprotein 25 mg/dL (5-40)
[2021-07-25 19:07] LABS: HCV Quant. RNA PCR 2000000 IU/mL (.)
[2021-07-25 20:34] LABS: HCV log 10 6.301 (.)
== END ==
PROVIDERS: PCP Internal Medicine; Referring Provider Internal Medicine; Visit Provider Internal Medicine
DX: B19.20 Unspecified viral hepatitis C without hepatic coma (principal)
CPT/HCPCS: 36415; 80053; 80061; 85025; 87522

== ENCOUNTER → 2021-08-03 16:28 | Outpatient (CLI) | payer MEDICAID, SELFPAY ==
[2021-08-03 17:49] LABS: LDH 185 U/L (84-246)
[2021-08-08 10:07] LABS: Comment 3 (.); HCV Quant. RNA PCR 918000 IU/mL (.); HEPATITIS B SURFACE AG Negative (Negative); Hepatitis A IgM Antibody Negative (Negative); Hepatitis B Core AB IgM Negative (Negative)
[2021-08-08 13:21] LABS: AFP, Tumor Marker 34.5 ng/mL (0.0-8.3); HCV log 10 5.963 (.); Hep C Antibodies >11.0 s/co ratio (0.0-0.9)
== END ==
PROVIDERS: PCP Internal Medicine; Referring Provider Internal Medicine Gastroenterology; Visit Provider Internal Medicine Gastroenterology
DX: B19.20 Unspecified viral hepatitis C without hepatic coma (principal)
CPT/HCPCS: 36415; 80074; 82105; 83615; 87522; 87902

== ENCOUNTER 2021-08-05 19:51 | Emergency (ER) | payer MEDICAID, SELFPAY ==
[2021-08-05 19:52] VITALS: BP 143/81; PULSE 77; RESP 16; TEMP 36.6; O2SAT 97; BMI 32.4
--- NOTE | 2021-08-05 20:09 | RAD_ITS ---
STUDY: X-RAY - RIGHT HAND REASON FOR EXAM: Female, 36 years old. Finger caught in oven door, swelling. TECHNIQUE: 3 view(s) of the hand. COMPARISON: None. FINDINGS: There is mild soft tissue swelling around the second digit. No visualized fractures. Normal radiocarpal articulation. Normal distal radioulnar joint. Normal visualized carpal bones. Normal carpal articulations Normal carpometacarpal articulation of the thumb. Normal second through fifth carpometacarpal joints. Normal metacarpi. Normal metacarpophalangeal joint of the thumb. Normal interphalangeal joint of the thumb. Normal proximal and distal phalanges of the thumb. Normal metacarpophalangeal joints of the second through fifth fingers. Normal proximal and distal interphalangeal joints of the second through fifth fingers. Normal phalanges of the second through fifth fingers. RAD/Hand Min 3 Views IMPRESSION: 1. Mild soft tissue swelling around the second finger. Electronically Signed: Dominic Rodriguez MD at 21:43 EDT , Service support ,
--- NOTE | 2021-08-05 20:16 | EX.ED.UPPERE ---
HPI History of Present Illness Chief Complaint: Upper Extremity Injury Informant: patient Narrative Narrative: Patient excellently had her right dominant hand index finger caught in an oven door when a close last night. This was about 24 hours ago. It sore to move. No other injury. Motion or pressing makes it hurt more. Nothing really makes it better other than rest. [facility] Medical History Congestive heart failure Endometriosis Hepatitis C Hypertension Migraines Recurrent oral herpes simplex Thrombocytopenia Home Medications buprenorphine HCl 8 mg sublingual tablet 8 mg SUBLINGUAL BID 03/05/19 [History Last Taken 11/14/20 17:00 1 tab] vitamin#30 30 mg iron-10 mg iron-folic acid 1 mg-omg3 capsule 1 cap PO DAILY 04/26/20 [History Last Taken 11/13/20 09:00 1 tab] propranolol 60 mg capsule,24 hr,extended release 60 mg PO QHS #30 cap 06/24/21 [Rx Last Taken Unknown] escitalopram oxalate 5 mg tablet 7.5 mg PO DAILY tab 07/25/21 [History Last Taken Unknown] valacyclovir 500 mg tablet 500 mg PO DAILY #90 tab 07/25/21 [Rx Last Taken Unknown] Allergy/AdvReac Type Severity Reaction Status Date / Time No Known Allergies Allergy Verified 08/05/21 19:54 Family History Father Cancer Mother COPD (chronic obstructive pulmonary disease) Grandmother COPD (chronic obstructive pulmonary disease) Surgical History S/P laparoscopy Status post amputation of finger Status post skin graft Social History Smoking Status: Light Smoker (<10/day) Tobacco: How many years used: 20 alcohol intake: never substance use type: former substance user Date of last use: 09/16/2016 caffeine: Yes what type of physical activity do you participate in: walking seatbelt use: always do you feel safe at home: Yes additional social history: Engaged- [place]- Works at [employer] Patient works at [employer] ED Gastrointestinal Gastrointestinal: Denies nausea or vomiting Musculoskeletal Musculoskeletal: Reports other Details: See history of present illness. ; Denies back pain or neck pain Integumentary Reports other Details: She does have a contusion to her right index finger but no abrasion or laceration. ; Denies abscess, Abrasions or rash Neurologic Neurologic: Denies paresthesias or weakness Hematologic/Lymphatic Hematologic/Lymphatic: Denies easy bleeding or easy bruising EXAM Physical Exam Const Vital Signs: 08/05/21 19:52 Temperature 97.8 F Temperature Source Temporal Pulse Rate 77 Respiratory Rate 16 Blood Pressure 143/81 H Blood Pressure Mean 101 Pulse Ox 97 Oxygen Delivery Method Room Air Positive well nourished and well developed General Appearance ED: well developed and NAD HEENT normocephalic and atraumatic Resp normal respiratory effort Extremity Extremity Narrative: Patient has some contusion to the right index finger mostly overlying the proximal phalanx and the area around the proximal interphalangeal joint. There is no deformity. Range of motion is actually still intact. No laceration or break in the skin. No erythema or warmth. No sign of infection. Neuro Neuro Narrative: No distal numbness or tingling. Sensorium / Orientation: alert Psych mental status grossly normal Skin Rashes: no rashes MDM MDM MDM Narrative Medical decision making narrative: Three-view x-ray of the hand looked at by me shows no sign of acute fracture. Patient was use ice rest. Range of motion will likely prevent stiffness. She has limitation use of the left hand due to significant rolon in the past so we would like to keep her right hand fully mobile. Discharge Plan Triage Chief Complaint: Upper Extremity Injury ED Provider: Roel Barraza Dx/Rx/DC Orders Clinical Impression: Contusion of right index finger Instructions: ED Finger Contusion Prescriptions: No Action buprenorphine HCl 8 mg tablet, sublingual 8 mg SUBLINGUAL BID RF: 0 vitamin#30 30 mg iron-10 mg iron-folic acid 1 mg-omg3 capsule 30 mg iron-10 mg iron-1 mg capsule 1 cap PO DAILY RF: 0 propranolol 60 mg capsule,extended release 24 hr 60 mg PO QHS Qty: 30 RF: 1 escitalopram oxalate [Lexapro] 5 mg tablet 7.5 mg PO DAILY RF: 0 valacyclovir 500 mg tablet 500 mg PO DAILY Qty: 90 RF: 1 Primary Care Provider: Freddie Lipscomb Referrals: Freddie Lipscomb MD [Primary Care Provider] - 1 Week if not improving Disposition Disposition: Home, Self Care
== END 2021-08-05 21:35 | disposition home or self-care (01) ==
PROVIDERS: Emergency Provider Emergency Medicine; PCP Internal Medicine
DX: S60.021A Contusion of right index finger without damage to nail, initial encounter (principal); F17.200 Nicotine dependence, unspecified, uncomplicated; W23.0XXA Caught, crushed, jammed, or pinched between moving objects, initial encounter
CPT/HCPCS: 73130; 99282

== ENCOUNTER 2023-08-03 11:19 | Observation (INO) | payer MEDICAID, SELFPAY ==
[2023-08-03] VITALS (13 sets, daily range): BP systolic 128–161; BP diastolic 71–99; PULSE 64–95; RESP 10–22; TEMP 36.4–36.9; O2SAT 83–98; BMI 21.6; BMI 26.9
--- NOTE | 2023-08-03 | FLU_PTH ---
PATHOLOGY RESULTS PATIENT: DIANE WANG LOC: [facility] U#:[id number] AGE/SX: 38/F ROOM: MT312 RE08/03/[address]: Dr. Georges Johnson DO : 1985 BED: 1 DIS: 08/04/2023 SPEC #: [id number] RECD: 08/03/23 13:24 STATUS: LEONARD BHARAT #: [id number] SIMONE: 08/03/23 00:[address]: Bc Barrett DEPT: CYTOLOGY RECD BY: Zaria Oleary ENTERED: 08/03/23 14:05 SP TYPE: Fluid OTHR DR: Dr. Freddie Lipscomb MD Tissues: Pleural fluid, NOS Procedures: Special Stain Group II Surgery Specimen Level IV Cytospin Fluid HEADER OPERATION: Ultrasound-guided right thoracentesis PRE-OP DIAGNOSIS: Right pleural effusion, history of COVID TISSUE SUBMITTED: Thoracentesis fluid for cytology DIAGNOSIS CYTOLOGY Thoracentesis fluid for cytology (cytospin and cell block): Negative for malignant cells. See comment. SJ:antonio 08/06/2023 COMMENT Clinical correlation and appropriate follow up are necessary. CYTOLOGY STUDY Slides are reviewed. CYTOLOGY GROSS Received is 80 ml of yellow cloudy fluid labeled with the patient's name and and designated per the requisition as thoracentesis. Submitted for cytology preparation including cell block. / antonio 08/03/2023 TC:5 CPT: 60018, 36573
[2023-08-03] MEDS: Albuterol 2.5 MG/3 ML VIAL.NEB. INHALATION (11:48)
[2023-08-03] MEDS: dexAMETHasone 4 MG Tablet 6 MG PO (12:13)
--- NOTE | 2023-08-03 12:15 | RAD_ITS ---
EXAM: XR CHEST, 1 VIEW CLINICAL INDICATION: COVID+, absent breath distal one third right TECHNIQUE: Frontal view of the chest. COMPARISON: No relevant prior studies available. FINDINGS: LUNGS AND PLEURAL SPACES: Large volume right subpulmonic pleural fluid with compressive atelectasis of right lower lobe and right middle lobe. No pneumothorax. HEART: Unremarkable. Cardiac silhouette not enlarged. MEDIASTINUM: Central airways and mediastinal contour are unremarkable. BONES/JOINTS: Unremarkable. SOFT TISSUES: Unremarkable. RAD/Chest 1 View (Portable) IMPRESSION: Large volume right subpulmonic pleural fluid with compressive atelectasis of the right lower lobe and right middle lobe. Electronically Signed: Ravinder Cardoso MD at 12:39 EDT ,
--- NOTE | 2023-08-03 12:24 | ED.VIS.DYS ---
HPI History of Present Illness Chief Complaint: Shortness of Breath Detail of Chief Complaint: This of breath and cough for 2 weeks. Was seen at urgent care. Informant: patient Onset/Context/Timing Onset: Weeks (2 weeks) Context: sudden Timing: Continuous and Waxes and wanes Quality: Positive for Dyspnea on exertion and Wheezing Current Severity: Mild Maximum Severity: Severe Worsened by: Exertion Relieved by: Nothing Associated Symptoms cough, rhinorrhea, post nasal drip, fever, sore throat, chills, sweats and yellow sputum; Negative for ear pain or subjective Chest Pain: Positive for Intermittent (Side.) Narrative Narrative: Milana is a 38-year-old woman who has upper respiratory symptoms started 2 weeks ago. She was seen in urgent care. While I was in the room she was contacted that her COVID swab was positive. She does have children at home that are ill. She is a smoker. She does have history of childhood asthma. She has been wheezing. She is on valacyclovir prophylactically. She denies leg pain, swelling discoloration. She does endorse myalgias arthralgias. She denies rash. Swelling of her joints. PE Risk Factors: Negative for Cancer, Prior DVT or PE, Recent immobilization, Recent surgery or Recent travel Prior similar symptoms: Yes Recent Illness/Hospitalization: Yes [facility] Medical History (Updated 08/03/23 @ 14:[address] Natalya Saavedra MD) Alcohol abuse Cirrhosis Congestive heart failure Elevated alpha fetoprotein Endometriosis Hepatitis C History of cigarette smoking Hypertension Migraines Nicotine vapor product user Recurrent oral herpes simplex Thrombocytopenia Home Medications buprenorphine HCl 8 mg sublingual tablet 8 mg sublingual BID Check with primary doctor 03/05/19 [History Last Taken 11/14/20 17:00 1 tab] vitamin#30 30 mg iron-10 mg iron-folic acid 1 mg-omg3 capsule 1 cap PO DAILY 04/26/20 [History Last Taken 11/13/20 09:00 1 tab] propranolol 60 mg capsule,24 hr,extended release 60 mg PO QHS #30 caps 06/24/21 [Rx Last Taken Unknown] escitalopram oxalate 5 mg tablet (Lexapro) 7.5 mg PO DAILY 07/25/21 [History Last Taken Unknown] valacyclovir 500 mg tablet 500 mg PO DAILY #90 tabs 07/25/21 [Rx Last Taken Unknown] Allergy/AdvReac Type Severity Reaction Status Date / Time No Known Allergies Allergy Verified 08/03/23 11:24 Family History Father Cancer Mother COPD (chronic obstructive pulmonary disease) Grandmother COPD (chronic obstructive pulmonary disease) Surgical History S/P laparoscopy Status post amputation of finger Status post skin graft Social History (Updated 08/03/23 @ 14:[address] Natalya Saavedra MD) household members: family and children Smoking Status: Former smoker Tobacco: How many years used: 20 Electronic Cigarette Use: with nicotine how long ago did patient quit smoking: Quit cigarette use 1 yr prior-->light vaping, reports 3x/week. alcohol intake: current alcohol intake frequency: 3 or more drinks per day details: Pint gas station vodka frequently during the week. substance use type: former substance user Date of last use: 09/16/2016 caffeine: Yes what type of physical activity do you participate in: walking seatbelt use: always do you feel safe at home: Yes additional social history: Engaged- [place]- Works at [email or web address] Patient works at [employer] ED Constitutional Constitutional ED: Reports chills, fever(s) and sweats; Denies weight loss Eyes Eyes: Denies blurry vision, change in vision or diplopia ENT ENT ED: Reports rhinorrhea and sore throat; Denies ear pain Cardiovascular Cardiovascular: Reports palpitations and racing heartbeat; Denies chest pain, orthopnea or paroxysmal nocturnal dyspnea Respiratory/Chest Respiratory/Chest: Reports cough, dyspnea, dyspnea on exertion and sputum; Denies orthopnea or paroxysmal nocturnal dyspnea Gastrointestinal Gastrointestinal: Reports nausea; Denies abdominal pain, constipation, diarrhea or melena Genitourinary Genitourinary ED: Denies dysuria Musculoskeletal Musculoskeletal: Reports arthralgias and myalgias Neurologic Neurologic: Reports headache(s) and weakness; Denies paresthesias Psychiatric Psychiatric: Reports anxiety Endocrine Endocrinology: Denies cold intolerance or heat intolerance Hematologic/Lymphatic Hematologic/Lymphatic: Denies easy bleeding or easy bruising EXAM Physical Exam Const Vital Signs: 08/03/23 11:19 08/03/23 11:28 08/03/23 11:31 Temperature 97.5 F L 97.5 F L Temperature Source Temporal Temporal Pulse Rate 95 88 Pulse Rate [1 (Initial Baseline)] Pulse Rate [2] Pulse Rate [3] Pulse Rate [4] Pulse Rate [5] Pulse Rate [6] Respiratory Rate 22 H 15 Respiratory Rate [1 (Initial Baseline)] Respiratory Rate [2] Respiratory Rate [3] Respiratory Rate [4] Respiratory Rate [5] Respiratory Rate [6] Respiratory Effort Short of Breath Labored Respiratory Pattern Blood Pressure 154/99 H 142/93 H Blood Pressure [1 (Initial Baseline)] Blood Pressure [2] Blood Pressure [3] Blood Pressure [4] Blood Pressure [5] Blood Pressure [6] Blood Pressure Mean 117 109 Pulse Ox 98 91 Oxygen Delivery Method Room Air Room Air Room Air Oxygen Delivery Method [1 (Initial Baseline)] Oxygen Delivery Method [2] Oxygen Delivery Method [3] Oxygen Delivery Method [4] Oxygen Delivery Method [5] Oxygen Delivery Method [6] Oxygen Flow Rate (L/min) 08/03/23 11:38 08/03/23 11:50 08/03/23 11:50 Temperature Temperature Source Pulse Rate 86 87 Pulse Rate [1 (Initial Baseline)] Pulse Rate [2] Pulse Rate [3] Pulse Rate [4] Pulse Rate [5] Pulse Rate [6] Respiratory Rate 11 L 14 Respiratory Rate [1 (Initial Baseline)] Respiratory Rate [2] Respiratory Rate [3] Respiratory Rate [4] Respiratory Rate [5] Respiratory Rate [6] Respiratory Effort Respiratory Pattern Normal Blood Pressure Blood Pressure [1 (Initial Baseline)] Blood Pressure [2] Blood Pressure [3] Blood Pressure [4] Blood Pressure [5] Blood Pressure [6] Blood Pressure Mean Pulse Ox 94 96 Oxygen Delivery Method Room Air Room Air Oxygen Delivery Method [1 (Initial Baseline)] Oxygen Delivery Method [2] Oxygen Delivery Method [3] Oxygen Delivery Method [4] Oxygen Delivery Method [5] Oxygen Delivery Method [6] Oxygen Flow Rate (L/min) 08/03/23 12:34 08/03/23 13:45 08/03/23 13:38 Temperature 98.1 F 98.1 F Temperature Source Oral Oral Pulse Rate 81 77 Pulse Rate [1 (Initial Baseline)] 94 Pulse Rate [2] 88 Pulse Rate [3] 91 Pulse Rate [4] 93 Pulse Rate [5] 84 Pulse Rate [6] 84 Respiratory Rate 10 L 15 Respiratory Rate [1 (Initial Baseline)] 20 H Respiratory Rate [2] 14 Respiratory Rate [3] 14 Respiratory Rate [4] 12 Respiratory Rate [5] 17 Respiratory Rate [6] 19 H Respiratory Effort Normal Non-Labored Respiratory Pattern Normal Blood Pressure 143/86 H 137/97 H Blood Pressure [1 (Initial Baseline)] 152/99 H Blood Pressure [2] 147/83 H Blood Pressure [3] 144/96 H Blood Pressure [4] 134/95 H Blood Pressure [5] 143/87 H Blood Pressure [6] 153/98 H Blood Pressure Mean 105 110 Pulse Ox 91 83 Oxygen Delivery Method Room Air Room Air Oxygen Delivery Method [1 (Initial Baseline)] Room Air Oxygen Delivery Method [2] Room Air Oxygen Delivery Method [3] Room Air Oxygen Delivery Method [4] Room Air Oxygen Delivery Method [5] Room Air Oxygen Delivery Method [6] Room Air Oxygen Flow Rate (L/min) 08/03/23 13:38 Temperature Temperature Source Pulse Rate 83 Pulse Rate [1 (Initial Baseline)] Pulse Rate [2] Pulse Rate [3] Pulse Rate [4] Pulse Rate [5] Pulse Rate [6] Respiratory Rate 10 L Respiratory Rate [1 (Initial Baseline)] Respiratory Rate [2] Respiratory Rate [3] Respiratory Rate [4] Respiratory Rate [5] Respiratory Rate [6] Respiratory Effort Respiratory Pattern Blood Pressure 137/97 H Blood Pressure [1 (Initial Baseline)] Blood Pressure [2] Blood Pressure [3] Blood Pressure [4] Blood Pressure [5] Blood Pressure [6] Blood Pressure Mean 110 Pulse Ox 96 Oxygen Delivery Method Nasal Cannula Oxygen Delivery Method [1 (Initial Baseline)] Oxygen Delivery Method [2] Oxygen Delivery Method [3] Oxygen Delivery Method [4] Oxygen Delivery Method [5] Oxygen Delivery Method [6] Oxygen Flow Rate (L/min) 2 Positive well nourished and well developed Constitutional Narrative: There is a respiratory distress. She is tachypneic. She used accessory muscles. She has wheezing noted. General Appearance ED: well developed; Negative for pallor HEENT Reports dry mucous membranes HEENT Narrative: Are normal. TMs are normal. Nares patent with clear discharge. Posterior pharynx with slight erythema no exudate. Uvula is midline. There is no deep protrusion. atraumatic Mouth ED: Yes dry mucous membranes Mouth: dry mucous membranes Eyes PERRL and EOMs intact bilaterally General Eye ED: Negative for pale conjunctiva or scleral icterus Neck no lymphadenopathy, supple, no meningeal signs and no JVD General: tenderness Resp No normal respiratory effort and No clear to auscultation bilaterally Resp Narrative: Breath sounds lower third lung field on the right. There is crackles above. Cardio regular rate, regular rhythm, S1 normal heart sound, S2 normal heart sound and no murmurs GI non-tender, non-distended and no masses Auscultation: hypoactive bowel sounds Palpation: soft Back/Spine no CVA tenderness and normal to inspection Extremity normal to inspection Extremity Narrative: There is no asymmetry, swelling, discoloration, leg vein distention, palpable cords or tenderness along the distribution of the deep venous system. General Extremety ED: Negative for edema or tenderness General Extremity: Negative for edema Neuro oriented x3, CN's II-XII intact bilaterally and no sensory deficits noted [place] Coma Scale: document GCS findings Spontaneous Obeys Commands Oriented 15 Sensorium / Orientation: alert Psych mental status grossly normal Skin no wounds and skin turgor normal General Skin Exam: jaundice; Negative for pallor Lesions: no lesions Rashes: no rashes MDM MDM MDM Narrative Medical decision making narrative: Patient has a parapneumonic effusion due to COVID. X-ray was obtained to evaluate for pneumonia as well. CBC was obtained. Thoracentesis was performed by radiologist under ultrasound guidance. Post chest x-ray reveals no into pneumothorax. There is residual effusion noted. I was informed at 1340 the patient is hypoxic requiring oxygen. She is present on 2 L. She desaturated to 83%. In light of this we will contact hospitalist for admission. Patient did receive Decadron and aerosol treatments initially. Since illness has been present for 2 weeks she is not candidate for any other therapy that I am aware of. Lab Data Attestation: I reviewed the patient's lab results. Lab results narrative: Patient has neutropenia consistent with elevated. Review fluid does not indicate a prior edema. Labs: Laboratory Results - last 24 hr 08/03/23 08/03/23 08/03/23 12:10 13:21 13:55 WBC 3.2 L RBC 4.05 L Hgb 12.3 Hct 37.9 MCV 93.6 MCH 30.4 MCHC 32.5 RDW Std Deviation 58.1 H RDW Coeff of Juan 17.1 H Plt Count 54 L Immature Gran % (Auto) 0.300 Neut % (Auto) 55.4 Lymph % (Auto) 33.0 [place] % (Auto) 10.1 H Eos % (Auto) 0.3 Baso % (Auto) 0.9 Absolute Neuts (auto) 1.8 L Absolute Lymphs (auto) 1.05 Nucleated RBC % 0 Platelet Estimate MOD DEC ESR 5 D-Dimer Quant (PE/DVT) 2.86 H* Sodium Cancelled 140 Potassium Cancelled Chloride Cancelled Carbon Dioxide Cancelled Anion Gap Cancelled BUN Cancelled Creatinine Cancelled Estim Creat Clear Calc Cancelled Est GFR (MDRD) Af Amer Cancelled Est GFR (MDRD) Non-Af Cancelled BUN/Creatinine Ratio Cancelled Glucose Cancelled Calcium Cancelled Phosphorus Magnesium Ferritin Total Bilirubin Direct Bilirubin AST ALT Alkaline Phosphatase Lactate Dehydrogenase Total Creatine Kinase C-React Prot Ext Range Total Protein Albumin Globulin Albumin/Globulin Ratio Fluid Source PLEURAL FLUID Fluid Color YELLOW Fluid Appearance CLEAR Fluid WBC 0.356 Fluid RBC 437 Fluid Tot Cell Count 0.422 H Fld Polynuclear WBCs # 0.008 Fld Polynuclear WBCs % 2.2 Fluid Mononuclear WBCs 0.348 Fld Mononuclear WBCs % 97.8 Fluid Neutrophils 3 Fluid Lymphocytes 54 Fluid Monocytes 6 Fluid Macrophages 37 Fl Pathologist Comment May follow Fluid Glucose 114 H Fluid Total Protein 2.1 Fluid LDH 106 Fluid Comment 2 SEE COMMENT 08/03/23 08/03/23 08/03/23 13:55 13:55 13:55 WBC RBC Hgb Hct MCV MCH MCHC RDW Std Deviation RDW Coeff of Juan Plt Count Immature Gran % (Auto) Neut % (Auto) Lymph % (Auto) [place] % (Auto) Eos % (Auto) Baso % (Auto) Absolute Neuts (auto) Absolute Lymphs (auto) Nucleated RBC % Platelet Estimate ESR D-Dimer Quant (PE/DVT) Sodium Cancelled Potassium 3.6 Cancelled Chloride 105 Cancelled Carbon Dioxide 30.0 Anion Gap BUN Creatinine Estim Creat Clear Calc Est GFR (MDRD) Af Amer Est GFR (MDRD) Non-Af BUN/Creatinine Ratio Glucose Calcium Phosphorus Magnesium Ferritin Total Bilirubin Direct Bilirubin AST ALT Alkaline Phosphatase Lactate Dehydrogenase Total Creatine Kinase C-React Prot Ext Range Total Protein Albumin Globulin Albumin/Globulin Ratio Fluid Source Fluid Color Fluid Appearance Fluid WBC Fluid RBC Fluid Tot Cell Count Fld Polynuclear WBCs # Fld Polynuclear WBCs % Fluid Mononuclear WBCs Fld Mononuclear WBCs % Fluid Neutrophils Fluid Lymphocytes Fluid Monocytes Fluid Macrophages Fl Pathologist Comment Fluid Glucose Fluid Total Protein Fluid LDH Fluid Comment 2 08/03/23 08/03/23 08/03/23 13:55 13:55 13:55 WBC RBC Hgb Hct MCV MCH MCHC RDW Std Deviation RDW Coeff of Juan Plt Count Immature Gran % (Auto) Neut % (Auto) Lymph % (Auto) [place] % (Auto) Eos % (Auto) Baso % (Auto) Absolute Neuts (auto) Absolute Lymphs (auto) Nucleated RBC % Platelet Estimate ESR D-Dimer Quant (PE/DVT) Sodium Potassium Chloride Carbon Dioxide Cancelled Anion Gap 5 Cancelled BUN 4 L Cancelled Creatinine 0.63 Estim Creat Clear Calc Est GFR (MDRD) Af Amer Est GFR (MDRD) Non-Af BUN/Creatinine Ratio Glucose Calcium Phosphorus Magnesium Ferritin Total Bilirubin Direct Bilirubin AST ALT Alkaline Phosphatase Lactate Dehydrogenase Total Creatine Kinase C-React Prot Ext Range Total Protein Albumin Globulin Albumin/Globulin Ratio Fluid Source Fluid Color Fluid Appearance Fluid WBC Fluid RBC Fluid Tot Cell Count Fld Polynuclear WBCs # Fld Polynuclear WBCs % Fluid Mononuclear WBCs Fld Mononuclear WBCs % Fluid Neutrophils Fluid Lymphocytes Fluid Monocytes Fluid Macrophages Fl Pathologist Comment Fluid Glucose Fluid Total Protein Fluid LDH Fluid Comment 2 08/03/23 08/03/23 08/03/23 13:55 13:55 13:55 WBC RBC Hgb Hct MCV MCH MCHC RDW Std Deviation RDW Coeff of Juan Plt Count Immature Gran % (Auto) Neut % (Auto) Lymph % (Auto) [place] % (Auto) Eos % (Auto) Baso % (Auto) Absolute Neuts (auto) Absolute Lymphs (auto) Nucleated RBC % Platelet Estimate ESR D-Dimer Quant (PE/DVT) Sodium Potassium Chloride Carbon Dioxide Anion Gap BUN Creatinine Cancelled Estim Creat Clear Calc 117.74 Est GFR (MDRD) Af Amer 136 Cancelled Est GFR (MDRD) Non-Af 113 Cancelled BUN/Creatinine Ratio 6.4 L Glucose Calcium Phosphorus Magnesium Ferritin Total Bilirubin Direct Bilirubin AST ALT Alkaline Phosphatase Lactate Dehydrogenase Total Creatine Kinase C-React Prot Ext Range Total Protein Albumin Globulin Albumin/Globulin Ratio Fluid Source Fluid Color Fluid Appearance Fluid WBC Fluid RBC Fluid Tot Cell Count Fld Polynuclear WBCs # Fld Polynuclear WBCs % Fluid Mononuclear WBCs Fld Mononuclear WBCs % Fluid Neutrophils Fluid Lymphocytes Fluid Monocytes Fluid Macrophages Fl Pathologist Comment Fluid Glucose Fluid Total Protein Fluid LDH Fluid Comment 2 08/03/23 08/03/23 08/03/23 13:55 13:55 13:55 WBC RBC Hgb Hct MCV MCH MCHC RDW Std Deviation RDW Coeff of Juan Plt Count Immature Gran % (Auto) Neut % (Auto) Lymph % (Auto) [place] % (Auto) Eos % (Auto) Baso % (Auto) Absolute Neuts (auto) Absolute Lymphs (auto) Nucleated RBC % Platelet Estimate ESR D-Dimer Quant (PE/DVT) Sodium Potassium Chloride Carbon Dioxide Anion Gap BUN Creatinine Estim Creat Clear Calc Est GFR (MDRD) Af Amer Est GFR (MDRD) Non-Af BUN/Creatinine Ratio Cancelled Glucose 114 H Cancelled Calcium 7.3 L Cancelled Phosphorus 3.2 Magnesium 1.5 L Ferritin 157 Total Bilirubin Cancelled Direct Bilirubin AST ALT Alkaline Phosphatase Lactate Dehydrogenase Total Creatine Kinase C-React Prot Ext Range Total Protein Albumin Globulin Albumin/Globulin Ratio Fluid Source Fluid Color Fluid Appearance Fluid WBC Fluid RBC Fluid Tot Cell Count Fld Polynuclear WBCs # Fld Polynuclear WBCs % Fluid Mononuclear WBCs Fld Mononuclear WBCs % Fluid Neutrophils Fluid Lymphocytes Fluid Monocytes Fluid Macrophages Fl Pathologist Comment Fluid Glucose Fluid Total Protein Fluid LDH Fluid Comment 2 08/03/23 08/03/23 08/03/23 13:55 13:55 13:55 WBC RBC Hgb Hct MCV MCH MCHC RDW Std Deviation RDW Coeff of Juan Plt Count Immature Gran % (Auto) Neut % (Auto) Lymph % (Auto) [place] % (Auto) Eos % (Auto) Baso % (Auto) Absolute Neuts (auto) Absolute Lymphs (auto) Nucleated RBC % Platelet Estimate ESR D-Dimer Quant (PE/DVT) Sodium Potassium Chloride Carbon Dioxide Anion Gap BUN Creatinine Estim Creat Clear Calc Est GFR (MDRD) Af Amer Est GFR (MDRD) Non-Af BUN/Creatinine Ratio Glucose Calcium Phosphorus Magnesium Ferritin Total Bilirubin 2.60 H Direct Bilirubin Cancelled 1.52 H AST Cancelled 91 H ALT Cancelled Alkaline Phosphatase Lactate Dehydrogenase Total Creatine Kinase C-React Prot Ext Range Total Protein Albumin Globulin Albumin/Globulin Ratio Fluid Source Fluid Color Fluid Appearance Fluid WBC Fluid RBC Fluid Tot Cell Count Fld Polynuclear WBCs # Fld Polynuclear WBCs % Fluid Mononuclear WBCs Fld Mononuclear WBCs % Fluid Neutrophils Fluid Lymphocytes Fluid Monocytes Fluid Macrophages Fl Pathologist Comment Fluid Glucose Fluid Total Protein Fluid LDH Fluid Comment 2 08/03/23 08/03/23 08/03/23 13:55 13:55 13:55 WBC RBC Hgb Hct MCV MCH MCHC RDW Std Deviation RDW Coeff of Juan Plt Count Immature Gran % (Auto) Neut % (Auto) Lymph % (Auto) [place] % (Auto) Eos % (Auto) Baso % (Auto) Absolute Neuts (auto) Absolute Lymphs (auto) Nucleated RBC % Platelet Estimate ESR D-Dimer Quant (PE/DVT) Sodium Potassium Chloride Carbon Dioxide Anion Gap BUN Creatinine Estim Creat Clear Calc Est GFR (MDRD) Af Amer Est GFR (MDRD) Non-Af BUN/Creatinine Ratio Glucose Calcium Phosphorus Magnesium Ferritin Total Bilirubin Direct Bilirubin AST ALT 32 Alkaline Phosphatase Cancelled 114 Lactate Dehydrogenase 342 H Total Creatine Kinase 116 C-React Prot Ext Range < 2.90 Total Protein Cancelled 6.5 Albumin Cancelled Globulin Albumin/Globulin Ratio Fluid Source Fluid Color Fluid Appearance Fluid WBC Fluid RBC Fluid Tot Cell Count Fld Polynuclear WBCs # Fld Polynuclear WBCs % Fluid Mononuclear WBCs Fld Mononuclear WBCs % Fluid Neutrophils Fluid Lymphocytes Fluid Monocytes Fluid Macrophages Fl Pathologist Comment Fluid Glucose Fluid Total Protein Fluid LDH Fluid Comment 2 08/03/23 08/03/23 13:55 13:55 WBC RBC Hgb Hct MCV MCH MCHC RDW Std Deviation RDW Coeff of Juan Plt Count Immature Gran % (Auto) Neut % (Auto) Lymph % (Auto) [place] % (Auto) Eos % (Auto) Baso % (Auto) Absolute Neuts (auto) Absolute Lymphs (auto) Nucleated RBC % Platelet Estimate ESR D-Dimer Quant (PE/DVT) Sodium Potassium Chloride Carbon Dioxide Anion Gap BUN Creatinine Estim Creat Clear Calc Est GFR (MDRD) Af Amer Est GFR (MDRD) Non-Af BUN/Creatinine Ratio Glucose Calcium Phosphorus Magnesium Ferritin Total Bilirubin Direct Bilirubin AST ALT Alkaline Phosphatase Lactate Dehydrogenase Total Creatine Kinase C-React Prot Ext Range Total Protein Albumin 2.3 L Globulin Cancelled 4.2 Albumin/Globulin Ratio Cancelled Fluid Source Fluid Color Fluid Appearance Fluid WBC Fluid RBC Fluid Tot Cell Count Fld Polynuclear WBCs # Fld Polynuclear WBCs % Fluid Mononuclear WBCs Fld Mononuclear WBCs % Fluid Neutrophils Fluid Lymphocytes Fluid Monocytes Fluid Macrophages Fl Pathologist Comment Fluid Glucose Fluid Total Protein Fluid LDH Fluid Comment 2 ABG Data ABG results: ABG 08/03/23 14:05 Specimen Type ART Sample Site L Radial pH 7.54 H Bicarbonate Actual 26.8 H Total CO2 28 Base Excess 4 H O2 Saturation 98 O2 % 2.0 ABG pCO2 31.5 L ABG pO2 89 O2 Delivery Device Cannula Vent Mode Not entered Radiography Chest X-Ray - ED: 1 View and Read by ED Physician (Reviewed portable chest x-ray reveals a moderate right pleural effusion. This is due to her COVID infection. We will have radiology do a thoracentesis.) Diagnostic Testing: Clinical Impression(s) from Imaging Studies Chest X-Ray 08/03/23 12:15 IMPRESSION: Large volume right subpulmonic pleural fluid with compressive atelectasis of the right lower lobe and right middle lobe. Electronically Signed: Ravinder Cardoso MD at 12:39 EDT , Thoracentesis Ultrasound 08/03/23 12:25 IMPRESSION: Ultrasound-guided right thoracentesis. Electronically Signed: Tomas Rojas MD at 13:48 EDT , Chest X-Ray 08/03/23 13:15 IMPRESSION: Status post right thoracentesis. Mild degree of residual pleural parenchymal changes at the right lung base. Electronically Signed: Tomas Rojas MD at 13:32 EDT , EKG Initial EKG: Attestation: I personally reviewed and interpreted this EKG as follows: Interpretation: Sinus Rhythm (Rate is 78. [place] to left. Patient has nonspecific changes in the inferior leads. There is decreased anterior force. LA interval 146 ms per cures duration 90 ms. QT duration 492 ms.) Treatment and Re-Evaluation :: EG was obtained to assess acid-base status as well as oxygenation on oxygen. Patient was informed that she will require admission. Hospitalist has been paged. Patient was reassessed prior to ABG she is still tachypneic. There is minimal use of accessory muscles. There is still wheezing noted. Discharge Plan Dx/Rx/DC Orders Clinical Impression: COVID-19 virus infection, Tobacco abuse, Acute hypoxic respiratory failure, Pleural effusion on right, Acute bronchospasm Disposition Disposition: Acute Care Hospital [facility] Discharge Date/Time: 08/03/23 15:13
--- NOTE | 2023-08-03 12:25 | US_ITS ---
PROCEDURE: ULTRASOUND GUIDED THORACENTESIS. DATE: August 03, 2023.. INDICATION: Female, 38 years old. Right pleural effusion. PHYSICIAN: Tomas Rojas M.D. PROCEDURE: The risks, benefits, and alternatives to the procedure were explained to the patient. The specific risks of bleeding, infection, and pneumothorax requiring chest tube insertion were discussed and accepted. Written informed consent was obtained. Ultrasonographic evaluation of the right lower pleural space was carried out. An adequate pocket was identified. The patient was placed in the sitting, upright position. The overlying skin was prepped and draped in sterile fashion. 1% lidocaine was administered subcutaneously for local anesthesia. Under ultrasound guidance, a 5 [place] thoracentesis needle/catheter system was advanced into the right posterior lower pleural fluid collection. Approximately 2210 mL of samanta-colored fluid was drained. The catheter was removed, and a sterile dressing was applied. A specimen was collected and sent to the laboratory for analysis, as requested by the referring clinician. The patient tolerated the procedure well. A chest x-ray was ordered. US/Thoracentesis W US IMPRESSION: Ultrasound-guided right thoracentesis. Electronically Signed: Tomas Rojas MD at 13:48 EDT ,
[2023-08-03 12:42] LABS: Absolute Lymphocyte Count 1.05 X10^3/uL (0.83-4.51); Absolute Neutrophil Count 1.8 X10^3/uL (2.0-7.7); Basophil# 0.03 X10^3/uL; Basophil% 0.9 % (0-1); Eosinophil# 0.01 X10^3/uL; Eosinophils% 0.3 % (0-5); Hematocrit 37.9 % (37-47); Hemoglobin 12.3 g/dL (12.0-15.0); Lymphocyte # 1.05 X10^3/ul (0.83-4.51); Mean Corp Hgb Conc 32.5 g/dL (32-36); Mean Corpuscular Hgb 30.4 pg (27.0-32.0); Mean Corpuscular Volume 93.6 fL (81-99); Monocyte# 0.32 X10^3/uL; Monocyte% 10.1 % (0-10); NRBC Flagged by Analyzer 0 % (0-5); Neutrophil # 1.76 X10^3/uL (2.7-7.7); Neutrophil % 55.4 % (47-70); POSITIVE COUNT YES; Platelet Count 54 K/mm3 (150-450); RBC Distribution Width CV 17.1 % (11.6-14.6); RBC Distribution Width SD 58.1 fl (35.1-43.9); Red Blood Count 4.05 M/mm3 (4.2-5.4); White Blood Count 3.2 K/mm3 (4.4-11.0)
[2023-08-03 12:43] LABS: Differential Indicated SCAN CRITERIA MET
[2023-08-03] MEDS: Lidocaine 2% (20 ml mdv) 20 ML Vial INFILT (12:59)
--- NOTE | 2023-08-03 13:15 | RAD_ITS ---
STUDY: X-RAY CHEST REASON FOR EXAM: Female, 38 years old. Post thora TECHNIQUE: AP inspiration and expiration views. COMPARISON: Comparison is made with prior study done earlier today. FINDINGS: The patient is status post right thoracentesis. No evidence of pneumothorax. Mild degree of residual pleural parenchymal changes at the right lung base. Normal size heart. Normal mediastinum and carlos. Normal visualized pulmonary arteries. Normal visualized aortic arch and descending thoracic aorta. Normal visualized thoracic spine. Normal visualized ribs, clavicles, and shoulders. There is no demonstrated abnormality of the visualized soft tissue structures of the upper abdomen. RAD/Chest Insp/Exp 2 View IMPRESSION: Status post right thoracentesis. Mild degree of residual pleural parenchymal changes at the right lung base. Electronically Signed: Tomas Rojas MD at 13:32 EDT ,
[2023-08-03 13:21] LABS: Platelet Estimate MOD DEC (ADEQ)
[2023-08-03 13:45] LABS: Body Fluid Mononuclear WBC # 0.348 10^3/uL; Body Fluid Mononuclear WBC % 97.8 %; Body Fluid Polynuclear WBC # 0.008 10^3/uL; Body Fluid Polynuclear WBC % 2.2 %; Body Fluid Total Cells Counted 0.422 10^3/ul; White Blood Count/Body Fluid 0.356 10^3/uL
[2023-08-03 14:08] LABS: Glucose, Body Fluid 114 mg/dL (40-70); LDH,Body Fluid 106 Units/L (Not Establ.); Protein, Body Fluid 2.1 g/dL (Not Establ.)
--- NOTE | 2023-08-03 14:12 | HP.PCM.HOS_ITS ---
HPI - General General Date of Admission: 08/03/23 Date of Service: 08/03/23 Chief Complaint: Dyspnea, cough, congestion, fever/chills, body aches. 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), Hx Childhood Asthma, Liver Cirrhosis with underlying history Hepatitis C, Chronic Thrombocytopenia, Chronic migraines, Chart reported history CHF unclear type, Anxiety and Depression, History of Polysubstance abuse in remission on chronic buprenorphine regimen, Tobacco use who presents to the [facility] ED on 08/03/23 with history of shortness of breath and cough for approximately 2 weeks evaluated urgent care with symptoms reportedly waxing and waning worse with exertion with associated wheezing, body aches, cough with productive sputum noted to be yellow in color, rhinorrhea, postnasal drip, fever and chills, sore throat, diaphoresis with positive COVID swab with children at home who are also ill not improving prompting ED evaluation. During ED evaluation she did admit to EtOH abuse over the last year. She notes her 4 children at home are also ill with COVID. She notes that her significant is healthy but from discussions suspect he does not reside there all the time. Work-up in the ED included T97.5, heart rate 88, BP 142/93, respiratory rate 15, 91% on room air however did desaturate down to 83% on room air with improvement to 96% on 2 L nasal cannula, CBC with WBC 3.2, and 112.3, platelet 54 with ANC 1.8, chest x-ray with a large volume right subpulmonic pulmonary fluid with compressive atelectasis of the right lower lobe and right middle lobe, ul trasound-guided thoracentesis per radiology performed with approximately 2210 milliliters of samanta-colored fluid drained with follow-up chest x-ray demonstrated evidence status post right thoracentesis with mild degree of residual parenchymal pleural changes at the right lung base but significantly improved. In the ED despite thoracentesis patient still with dyspnea, mild accessory muscle usage and wheezing with oxygen requirements. In the ED patient discharged albuterol, oral Decadron 6 mg p.o. x1, morphine 4 mg IV x1. EKG requested, pending upon evaluation. [facility], [facility] Medical History (Updated 08/03/23 @ 14:[address] Natalya Saavedra MD) Alcohol abuse Cirrhosis Congestive heart failure Elevated alpha fetoprotein Endometriosis Hepatitis C History of cigarette smoking Hypertension Migraines Nicotine vapor product user Recurrent oral herpes simplex Thrombocytopenia Home Medications buprenorphine HCl 8 mg sublingual tablet 8 mg sublingual BID Check with primary doctor 03/05/19 [History Last Taken 11/14/20 17:00 1 tab] vitamin#30 30 mg iron-10 mg iron-folic acid 1 mg-omg3 capsule 1 cap PO DAILY 04/26/20 [History Last Taken 11/13/20 09:00 1 tab] propranolol 60 mg capsule,24 hr,extended release 60 mg PO QHS #30 caps 06/24/21 [Rx Last Taken Unknown] escitalopram oxalate 5 mg tablet (Lexapro) 7.5 mg PO DAILY 07/25/21 [History Last Taken Unknown] valacyclovir 500 mg tablet 500 mg PO DAILY #90 tabs 07/25/21 [Rx Last Taken Unknown] Allergy/AdvReac Type Severity Reaction Status Date / Time No Known Allergies Allergy Verified 08/03/23 11:24 Family History Father Cancer Mother COPD (chronic obstructive pulmonary disease) Grandmother COPD (chronic obstructive pulmonary disease) Surgical History S/P laparoscopy Status post amputation of finger Status post skin graft Social History (Updated 08/03/23 @ 14:[address] Natalya Saavedra MD) household members: family and children Smoking Status: Former smoker Tobacco: How many years used: 20 Electronic Cigarette Use: with nicotine how long ago did patient quit smoking: Quit cigarette use 1 yr prior-->light vaping, reports 3x/week. alcohol intake: current alcohol intake frequency: 3 or more drinks per day details: [email or web address] vodka frequently during the week. substance use type: former substance user Date of last use: 09/16/2016 caffeine: Yes what type of physical activity do you participate in: walking seatbelt use: always do you feel safe at home: Yes additional social history: Engaged- Ald[employer]- Works at [employer] Patient works at [employer] ROS ROS Narrative Admission Review of Systems: CONSTITUTIONAL: No weight loss, + fever, chills, weakness or fatigue. HEENT: + Headache, congestion, rhinorrhea. Eyes: No visual loss, blurred vision, double vision or yellow sclerae. Ears, Nose, Throat: No hearing loss, sneezing. SKIN: No rash or itching, lesions, wounds. CARDIOVASCULAR: + Orthopnea. No chest pain, chest pressure or chest discomfort, palpitations, edema, syncopal events. RESPIRATORY: + shortness of breath, cough, sputum production, wheezing. No hemoptysis. GASTROINTESTINAL: + anorexia, nausea, vomiting only after coughing bouts, diarrhea, No abdominal pain, melena, BRBPR. GENITOURINARY: No dysuria, frequency, urgency or retention. NEUROLOGICAL: + headache, No dizziness, syncope, paralysis, ataxia, numbness or tingling in the extremities, focal weakness, change in bowel or bladder control, seizure. MUSCULOSKELETAL: + muscle, back pain, joint pain or stiffness. HEMATOLOGIC: No anemia, bleeding or bruising. LYMPHATICS: No enlarged nodes. No history of splenectomy. PSYCHIATRIC: + history of depression or anxiety. ENDOCRINOLOGIC: + reports of sweating, cold/heat intolerance. No polyuria or polydipsia. ALLERGIES: + Hx childhood asthma. Vital Signs Vital Signs Vital Signs: 08/03/23 11:19 08/03/23 11:28 08/03/23 11:31 Temperature 97.5 F L 97.5 F L Temperature Source Temporal Temporal Pulse Rate 95 88 Pulse Rate [1 (Initial Baseline)] Pulse Rate [2] Pulse Rate [3] Pulse Rate [4] Pulse Rate [5] Pulse Rate [6] Respiratory Rate 22 H 15 Respiratory Rate [1 (Initial Baseline)] Respiratory Rate [2] Respiratory Rate [3] Respiratory Rate [4] Respiratory Rate [5] Respiratory Rate [6] Respiratory Effort Short of Breath Labored Respiratory Pattern Blood Pressure 154/99 H 142/93 H Blood Pressure [1 (Initial Baseline)] Blood Pressure [2] Blood Pressure [3] Blood Pressure [4] Blood Pressure [5] Blood Pressure [6] Blood Pressure Mean 117 109 Pulse Ox 98 91 Oxygen Delivery Method Room Air Room Air Room Air Oxygen Delivery Method [1 (Initial Baseline)] Oxygen Delivery Method [2] Oxygen Delivery Method [3] Oxygen Delivery Method [4] Oxygen Delivery Method [5] Oxygen Delivery Method [6] Oxygen Flow Rate (L/min) 08/03/23 11:38 08/03/23 11:50 08/03/23 11:50 Temperature Temperature Source Pulse Rate 86 87 Pulse Rate [1 (Initial Baseline)] Pulse Rate [2] Pulse Rate [3] Pulse Rate [4] Pulse Rate [5] Pulse Rate [6] Respiratory Rate 11 L 14 Respiratory Rate [1 (Initial Baseline)] Respiratory Rate [2] Respiratory Rate [3] Respiratory Rate [4] Respiratory Rate [5] Respiratory Rate [6] Respiratory Effort Respiratory Pattern Normal Blood Pressure Blood Pressure [1 (Initial Baseline)] Blood Pressure [2] Blood Pressure [3] Blood Pressure [4] Blood Pressure [5] Blood Pressure [6] Blood Pressure Mean Pulse Ox 94 96 Oxygen Delivery Method Room Air Room Air Oxygen Delivery Method [1 (Initial Baseline)] Oxygen Delivery Method [2] Oxygen Delivery Method [3] Oxygen Delivery Method [4] Oxygen Delivery Method [5] Oxygen Delivery Method [6] Oxygen Flow Rate (L/min) 08/03/23 12:34 08/03/23 13:45 08/03/23 13:38 Temperature 98.1 F 98.1 F Temperature Source Oral Oral Pulse Rate 81 77 Pulse Rate [1 (Initial Baseline)] 94 Pulse Rate [2] 88 Pulse Rate [3] 91 Pulse Rate [4] 93 Pulse Rate [5] 84 Pulse Rate [6] 84 Respiratory Rate 10 L 15 Respiratory Rate [1 (Initial Baseline)] 20 H Respiratory Rate [2] 14 Respiratory Rate [3] 14 Respiratory Rate [4] 12 Respiratory Rate [5] 17 Respiratory Rate [6] 19 H Respiratory Effort Normal Non-Labored Respiratory Pattern Normal Blood Pressure 143/86 H 137/97 H Blood Pressure [1 (Initial Baseline)] 152/99 H Blood Pressure [2] 147/83 H Blood Pressure [3] 144/96 H Blood Pressure [4] 134/95 H Blood Pressure [5] 143/87 H Blood Pressure [6] 153/98 H Blood Pressure Mean 105 110 Pulse Ox 91 83 Oxygen Delivery Method Room Air Room Air Oxygen Delivery Method [1 (Initial Baseline)] Room Air Oxygen Delivery Method [2] Room Air Oxygen Delivery Method [3] Room Air Oxygen Delivery Method [4] Room Air Oxygen Delivery Method [5] Room Air Oxygen Delivery Method [6] Room Air Oxygen Flow Rate (L/min) 08/03/23 13:38 Temperature Temperature Source Pulse Rate 83 Pulse Rate [1 (Initial Baseline)] Pulse Rate [2] Pulse Rate [3] Pulse Rate [4] Pulse Rate [5] Pulse Rate [6] Respiratory Rate 10 L Respiratory Rate [1 (Initial Baseline)] Respiratory Rate [2] Respiratory Rate [3] Respiratory Rate [4] Respiratory Rate [5] Respiratory Rate [6] Respiratory Effort Respiratory Pattern Blood Pressure 137/97 H Blood Pressure [1 (Initial Baseline)] Blood Pressure [2] Blood Pressure [3] Blood Pressure [4] Blood Pressure [5] Blood Pressure [6] Blood Pressure Mean 110 Pulse Ox 96 Oxygen Delivery Method Nasal Cannula Oxygen Delivery Method [1 (Initial Baseline)] Oxygen Delivery Method [2] Oxygen Delivery Method [3] Oxygen Delivery Method [4] Oxygen Delivery Method [5] Oxygen Delivery Method [6] Oxygen Flow Rate (L/min) 2 Weight Weight: 138 lb 3.2 oz Body Mass Index (BMI) 21.6 Physical Exam Narrative Physical Examination: General: Awake, alert, oriented x 3 and cooperative, seated upright in the ED bed, fatigued and ill-appearing, mildly increased respiratory rate. Skin: Normal color, normal turgor, no icterus, no cyanosis. HEENT: AT/NC, EOMI, PERRLA, moderately dry MM, no carotid bruits or JVD noted. Lungs: Diffusely diminished, greater bases, mildly increased respiratory rate, no rales, ronchi or wheezing, s/p recent thoracentesis. Heart: Regular rate with regular rhythm; no gallop, rub audible. Abdomen: Soft, no obvious TTP, ND, distant hyperactive bowel sounds, appreciated HM. Extremities: No cyanosis, clubbing, or edema. Neurological: Patient awake, alert, oriented as noted, cognitive function intact; pupils equally reactive to light and accommodation, cranial nerves II- XII grossly normal, moving all 4 extremities, no focal deficits, strength moderately to severely global decrease secondary to acute presentation. Psychiatric: Affect appears fatigued, ill-appearing,no acute evidence of d epressive or anxiety feelings but does have underlying history. Results Lab / Micro Data 08/03/23 12:10 08/03/23 13:55 Labs: Laboratory Results - last 24 hr 08/03/23 12:10: WBC 3.2 L, RBC 4.05 L, Hgb 12.3, Hct 37.9, MCV 93.6, MCH 30.4, MCHC 32.5, RDW Std Deviation 58.1 H, RDW Coeff of Juan 17.1 H, Plt Count 54 L, Immature Gran % (Auto) 0.300, Neut % (Auto) 55.4, Lymph % (Auto) 33.0, [place] % (Auto) 10.1 H, Eos % (Auto) 0.3, Baso % (Auto) 0.9, Absolute Neuts (auto) 1.8 L, Absolute Lymphs (auto) 1.05, Nucleated RBC % 0, Platelet Estimate MOD DEC, Sodium Cancelled, Potassium Cancelled, Chloride Cancelled, Carbon Dioxide Cancelled, Anion Gap Cancelled, BUN Cancelled, Creatinine Cancelled, Estim Creat Clear Calc Cancelled, Est GFR (MDRD) Af Amer Cancelled, Est GFR (MDRD) Non-Af Cancelled, BUN/Creatinine Ratio Cancelled, Glucose Cancelled, Calcium Cancelled 08/03/23 13:21: Fluid WBC 0.356, Fluid Tot Cell Count 0.422 H, Fld Polynuclear WBCs # 0.008, Fld Polynuclear WBCs % 2.2, Fluid Mononuclear WBCs 0.348, Fld [place] nuclear WBCs % 97.8, Fluid Glucose 114 H, Fluid Total Protein 2.1, Fluid LDH 106 Radiology Impression Chest X-Ray 08/03/23 12:15 IMPRESSION: Large volume right subpulmonic pleural fluid with compressive atelectasis of the right lower lobe and right middle lobe. Electronically Signed: Ravinder Cardoso MD at 12:39 EDT , Thoracentesis Ultrasound 08/03/23 12:25 IMPRESSION: Ultrasound-guided right thoracentesis. Electronically Signed: Tomas Rojas MD at 13:48 EDT , Chest X-Ray 08/03/23 13:15 IMPRESSION: Status post right thoracentesis. Mild degree of residual pleural parenchymal changes at the right lung base. 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), Hx Childhood Asthma, Liver Cirrhosis with underlying history Hepatitis C, Chronic Thrombocytopenia, Chronic migraines, Chart reported history CHF unclear type, Anxiety and Depression, History of Polysubstance abuse in remission on chronic buprenorphine regimen, Tobacco use who presents to the [facility] ED on 08/03/23 with history of shortness of breath and cough for approximately 2 weeks evaluated urgent care with symptoms reportedly waxing and waning worse with exertion with associated wheezing, body aches, cough with productive sputum noted to be yellow in color, rhinorrhea, postnasal drip, fever and chills, sore throat, diaphoresis with positive COVID swab with children at home who are also ill not improving prompting ED evaluation. #1. Acute Hypoxia (not respiratory failure), Multifactorial, secondary to Acute Viral Syndrome, COVID-19 in addition to Acute Right Sided Pleural effusion of unclear etiology: Will admit to the MS, maintain on COVID precautions, will maintain on oxygen with wean as tolerated to room air, ATC budesonide therapy, PRN albuterol, HOB, IS parameters w/ pending sputum cultures, respiratory viral panel and urine antigens, will obtain D-dimer, procalcitonin, CRP, CPK, Ferritin, LDH, trop and BNP in addition to hepatic profile as only BMP obtained in the ED, will continue supportive care including q 2 hour turning including prone given no prone bed availability and judicious hydration, closely monitor for worsening status for ARDS and multiorgan failure, will initiate and continue IV decadron x 10 doses, given presentation would be a candidate of IV remdesivir however, we need to assess her liver function first and also if her function is appropriate will need ID evaluation given timeline 2 weeks since onset of symptoms outside of the 10 day window of treatment start. Patient as noted s/p thoracentesis, fluid studies pending but preliminary assessment non- infectious appearing, will hold on abx therapy at this time, procalcitonin pending. #2. Liver Cirrhosis with underlying history Chronic Hepatitis C with reported concurrent CHF History, unclear type and now possibly confounded by alcohol abuse: Unfortunately presentation with significant right-sided pleural effusion could be related with patient's underlying cirrhotic disease and CHF report per patient although patient is not on any standard medication, will maintain on telemetry, will obtain liver profile, will obtain mag, will obtain TSH, will obtain ECHO to further assess. Patient reports has noted onset of significant alcohol intake with a plan of gas station vodka not necessarily every day but frequently during the week x1 year. #3. EtOH Abuse: Patient notes routine consumption of up to a pint of gas station vodka not assertively every day but frequently during the week. Will maintain on CIWA protocol, MVI, thiamine and folic acid. Case management consulted. May consider adding withdrawal protocol although she reports last drink greater than 48 hours prior #4. History child asthma: As noted we will maintain on scheduled budesonide and as needed albuterol but per report has not had issues since childhood. #5. Acute on chronic thrombocytopenia: Admission platelets 54, suspect likely secondary to recent acute COVID illness, will trend CMP. #6. History of polysubstance abuse: We will continue patient home chronic buprenorphine regimen. #7. Anxiety and depression: Patient previously on escitalopram regimen, no longer taking. #8. Chronic migraines: Patient previously was on propranolol, no longer taking. #9. Histoyr Cigarette Tobacco use-->Intermittent Vaping: Encouraged complete cessation, inpatient consultation per RT, NR if desired. #10. DVT prophylaxis: SCDs, will hold chemoprophylaxis given acute on chronic thrombocytopenia. Charges/Coding Visit Charges Inpatient E&M: 91773 Init Hosp L3
[2023-08-03 14:15] LABS: Base Excess 4 mmol/L (-2 to +2); Bicarbonate 26.8 mmol/L (22-26); Blood Gas Specimen Type ART; Mode Not entered; O2 Delivery Device Cannula; PO2 89 mmHG (75-100); SITE L Radial; SO2 98 % (95-99); Total Carbon Dioxide 28 mmol/L; pCO2 31.5 mmHg (35-45); pH 7.54 (7.35-7.45)
--- NOTE | 2023-08-03 14:15 | NURSING ---
MED SURG WHITE COVID 19 INFECTION, RESP FAILURE WITH HYPOXIA, RIGHT PLEURAL EFFUSION
[2023-08-03] MEDS: Morphine 4 MG/ML Syringe IV (14:20)
[2023-08-03 14:23] LABS: Anion Gap 5 (5-15); BUN 4 mg/dL (7-18); BUN/Creat Ratio 6.4 RATIO (10-20); Calcium,Total 7.3 mg/dL (8.5-10.1); Chloride 105 mmol/L (98-107); Creatinine, Serum 0.63 mg/dL (0.55-1.02); EST Glomerular Filtration Rate 113 mL/min (>60); Est Glom Filt Rate - Afr Amer 136 mL/min (>60); Estimated Creatinine Clearance 117.74 ml/min; Glucose 114 mg/dL (74-106); Potassium 3.6 mmol/L (3.5-5.1); Sodium Level 140 mmol/L (136-145)
--- NOTE | 2023-08-03 14:49 | EKG12_ITS ---
Test Reason : Blood Pressure : / mmHG Vent. Rate : 078 BPM Atrial Rate : 078 BPM P-R Int : 146 ms QRS Dur : 090 ms QT Int : 492 ms P-R-T Axes : 042 -42 -22 degrees QTc Int : 560 ms Critical Test Result: Long QTc Normal sinus rhythm Left axis deviation Minimal voltage criteria for LVH, may be normal variant ( Darwin product ) Cannot rule out Anterior infarct , age undetermined Prolonged QT Abnormal ECG Confirmed by ANDREWS GIFFORD, KASI ([id number]), online editor KELLY MATIAS ([id number]) on 08/06/2023 10:52:56 AM Referred By: Confirmed By:ANDREZ SPARROW MD
[2023-08-03 14:56] LABS: AST(SGOT) 91 U/L (15-37); Alanine Aminotransfer ALT/SGPT 32 U/L (13-56); Albumin, Serum 2.3 g/dL (3.2-5.0); Alkaline Phosphatase 114 U/L (45-117); Bilirubin, Direct 1.52 mg/dL (0.00-0.30); CPK Total, Creatine Kinase 116 U/L (26-192); CRP < 2.90 mg/L (0.0-3.0); Globulin 4.2 g/dL (2.2-4.2); Magnesium 1.5 mg/dL (1.6-2.6); Protein, Total 6.5 g/dL (6.4-8.2)
[2023-08-03 14:59] LABS: D-Dimer Quantitative (DVT/PE) 2.86 FEU/ug/m (0.27-0.49)
[2023-08-03 15:00] LABS: Lymphocytes 54 %; Macrophages 37 %; Monocytes 6 %; Neutrophil (Segs) 3 %
[2023-08-03 15:03] LABS: Appearance/Body Fluid CLEAR; Auto B Fluid Analyzer BKGD Ct COUNTS W/IN LIMITS (W/IN LIMITS); Color/Body Fluid YELLOW; Red Cell Count/Body Fluid 437 /mm3; Source- Body Fluid PLEURAL FLUID
[2023-08-03 15:04] LABS: Body Fluid QC Type(s) BF1Q
[2023-08-03 15:04] LABS: Ferritin 157 ng/mL (8-252); LDH 342 U/L (84-246); Phosphorus 3.2 mg/dL (2.5-4.9)
[2023-08-03 15:10] LABS: Erythrocyte Sedimentation Rate 5 mm/hr (0-30)
--- NOTE | 2023-08-03 15:26 | CT_ITS ---
EXAM: CT ANGIOGRAPHY CHEST WITHOUT AND WITH INTRAVENOUS CONTRAST CLINICAL INDICATION: Suspected PE TECHNIQUE: Helically acquired angiography images were obtained of the chest without and with intravenous contrast. This CT exam was performed using one or more of the following dose reduction techniques: automated exposure control, adjustment of the mA and/or kV according to patient size, and/or use of iterative reconstruction technique. MIP reconstructed images were created and reviewed. CONTRAST: IV 100mL [id number] COMPARISON: No relevant prior studies available. FINDINGS: PULMONARY ARTERIES: Normal. Normal in caliber. No evidence of pulmonary embolism. AORTA: Normal. Normal in caliber. No evidence of dissection. GREAT VESSELS OF AORTIC ARCH: Normal. Normal in caliber. No evidence of dissection. LUNGS AND PLEURAL SPACES: Moderate-sized right pleural effusion with compression atelectasis of the right middle and lower lobes of the lung. Patchy areas of groundglass density throughout the remainder of both lungs suggestive of inflammatory change. No mass. No pneumothorax. HEART: Normal. Heart size is normal. No pericardial effusion. No significant coronary artery calcifications. MEDIASTINUM: Normal. No mediastinal or hilar adenopathy. Esophagus is unremarkable. No hiatal hernia. BONES/JOINTS: Normal. No suspicious lytic or blastic abnormality. SOFT TISSUES: Diffuse soft tissue edema suggesting anasarca. LIVER: Nodular contour of the liver suggests underlying cirrhosis. SPLEEN: Spleen is partially visualized but appears enlarged. STOMACH AND BOWEL: Varicose vessels noted along the lesser curvature of the stomach. INTRAPERITONEAL SPACE: Small volume ascites. CT/CTA Chest W/WO Contrast IMPRESSION: 1. No evidence of acute pulmonary embolism. 2. Liver cirrhosis and portal hypertension. 3. Extensive third spacing of fluids. Electronically Signed: Arcadio Banerjee MD at 16:53 EDT ,
--- NOTE | 2023-08-03 15:32 | ECHOL_ITS ---
Reason For Study: Dyspnea/SOB Procedure This was a limited 2D transthoracic echocardiogram. The exam was abbreviated due to the COVID 19 protocol. Exam performed portable in patient room. Left Ventricle Normal LV size. The estimated ejection fraction is 60 %. No regional wall motion abnormalities noted. Right Ventricle Normal RV size. Normal systolic function. Atria The left and right atria are normal. No doppler evidence for ASD. Mitral Valve There is no mitral valve stenosis. Trivial mitral valve insufficiency. Tricuspid Valve There is no tricuspid stenosis. Trivial tricuspid valve insufficiency. Pulmonary artery systolic pressure is 30 mmHg. Aortic Valve Trisinus/trileaflet aortic valve. There is no aortic stenosis. No aortic valve insufficiency. Pulmonic Valve There is no pulmonic valvular stenosis. No pulmonic valve insufficiency. Great Vessels Normal aortic root. Pericardium/Pleural Small pericardial effusion. MMode/2D Measurements & Calculations LVIDd: 5.3 cm IVSd: 0.88 cm LVIDs: 3.7 cm LVPWd: 0.97 cm FS: 30.2 % Doppler Measurements & Calculations TR max elliott: 255.7 cm/sec TR max P.2 mmHg ECHO/Echo, Limited Study Interpretation Summary The estimated ejection fraction is 60 %. Trivial mitral valve insufficiency. Small pericardial effusion. Ordering Physician: Natalya Saavedra Referring Physician: Freddie Lipscomb Performed By: Aury Bravo, RDCS, RVT
[2023-08-03 15:42] LABS: BNP,B-Type NATRIURETIC PEPTIDE 92.2 pg/mL (0-100)
[2023-08-03] MEDS: 0.9% Saline Lock 10 ML Syringe IV (16:53)
[2023-08-03] MEDS: Magnesium Sulfate 2 GM in Dextrose 5%-Water (100mL Bag) 100 ML IV (16:53)
[2023-08-03] MEDS: buprenorphine HCL 8 MG TAB.SUBL SL (17:07)
[2023-08-03 17:20] LABS: Internal QC Validated? YES +Cl - CLEAR BKGD; Pregnancy, Urine Negative Negative; Record Kit Lot#,Urine Preg 667200
[2023-08-03 17:21] LABS: Procalcitonin < 0.01 ng/mL (0.00-0.09)
[2023-08-03 17:48] LABS: Probe Check PASS
[2023-08-03 17:50] LABS: M R Staph aureus DNA By PCR POSITIVE (Negative)
[2023-08-03] MEDS: Budesonide Respules 0.5 MG/2 ML AMPUL.NEB. INHALATION (20:55)
[2023-08-04 05:43] VITALS: BMI 26.9
--- NOTE | 2023-08-04 06:13 | CON.PCM.CC_ITS ---
Assessment & Plan Assessment/Plan (1) Pleural effusion on right: PLAN: Plan RECOMMENDATIONS: 1. Continue Decadron as ordered. 2. Recommend outpatient follow-up with gastroenterology to address underlying cirrhosis. 3. Encourage incentive spirometer use and mobilize patient as tolerated. 4. No additional intervention or work-up is required from a pulmonary perspective. 5. We will sign off at this time. Please call with any additional questions. IMPRESSIONS: 1. Pleural effusion The patient presented to the hospital with shortness of breath in the setting of COVID-19 pneumonia and a right-sided pleural effusion. The patient ultimately underwent ultrasound-guided thoracentesis, which revealed a transudative pleural effusion, which I suspect is related to her underlying cirrhosis and/or heart failure. Nevertheless, we do not have any objective data to confirm that she truly has underlying congestive heart failure. The pleural fluid itself does not appear to be infectious in nature. The patient is maintaining appropriate oxygen saturations on room air. No additional intervention or work-up is required from a pulmonary perspective. Per traditional Light's criteria, if at least one of the following three is fulfilled, the fluid would be considered an exudate: 1. Pleural fluid protein/serum protein ratio greater than 0.5 2. Pleural fluid LDH/serum LDH ratio greater than 0.6 3. Pleural fluid LDH greater than two thirds the upper limits of the laboratories normal serum LDH Based upon my review of the patient's pleural fluid analysis, along with serum LDH and total protein levels, the pleural fluid would be considered transudative in nature. 2. History of cirrhosis/hepatitis C/history of polysubstance abuse As noted above, I do suspect that the patient's pleural effusion may be secondary to her cirrhosis. I would recommend that she follow-up with Dr. Rivera, as she has been lost to follow-up for 2 years. 3. COVID-19 pneumonia The patient was apparently diagnosed with COVID-19 as part of her work-up at a local urgent care 2 days prior to her hospitalization. Her shortness of breath has improved more so with thoracentesis. Her residual symptoms may be secondary to COVID-19. Nevertheless, she is maintaining appropriate oxygen saturations on room air. The patient has already been initiated on Decadron. I do not see any indication to escalate therapy. 4. History of alcohol dependency/questionable asthma/chronic thrombocytopenia/anxiety/depression Complicates care, management, recovery and prognosis. Continue current supportive care along with home medications as indicated. This note was generated with [employer] dictation software. It may contain incorrect words, spelling, and punctuation that were not noted in checking the note before signing. HPI Consult Data Date of Consult: 08/04/23 HPI Narrative Reason for Consultation: Pleural effusion HPI Narrative: The patient is a 38-year-old female, with a history as outlined below, who presented to the emergency department on August 03 with shortness of breath, cough and congestion. The patient has a history of cirrhosis, hep C, alcohol dependency, thrombocytopenia, tobacco dependency and history of polysubstance abuse. The patient stated that she was told she had congestive heart failure 10+ years ago, likely related to her drug use. We do not have any echoca rdiograms in our system to suggest that she has ongoing heart failure issues. The patient reported that she established care with Dr. Rivera of gastroenterology with regard to her cirrhosis, but it has been several years since she was last seen by him. The patient has several sick children at home as well. She stated that she was evaluated in the urgent care 2 days ago and diagnosed with COVID. She does report a childhood history of asthma. On presentation to the emergency department, the patient was documented to be afebrile and hemodynamically stable. Initial laboratory evaluation revealed thrombocytopenia with a platelet count of 54,000. D-dimer was elevated at 2.86. CTA chest showed no evidence for pulmonary embolism. There was a moderate- sized right-sided pleural effusion. The patient was ultimately referred to the radiology department, where she underwent an ultrasound-guided thoracentesis with 2.2 L of fluid removed. This morning, the patient did report significant overall improvement in her breathing quality following her thoracentesis. [facility] Medical History (Updated 08/03/23 @ 14:[address] Natalya Saavedra MD) Alcohol abuse Cirrhosis Congestive heart failure Elevated alpha fetoprotein Endometriosis Hepatitis C History of cigarette smoking Hypertension Migraines Nicotine vapor product user Recurrent oral herpes simplex Thrombocytopenia Home Medications buprenorphine HCl 8 mg sublingual tablet 8 mg sublingual BID Check with primary doctor 03/05/19 [History Last Taken 11/14/20 17:00 1 tab] vitamin#30 30 mg iron-10 mg iron-folic acid 1 mg-omg3 capsule 1 cap PO DAILY 04/26/20 [History Last Taken 11/13/20 09:00 1 tab] propranolol 60 mg capsule,24 hr,extended release 60 mg PO QHS #30 caps 06/24/21 [Rx Last Taken Unknown] escitalopram oxalate 5 mg tablet (Lexapro) 7.5 mg PO DAILY 07/25/21 [History Last Taken Unknown] valacyclovir 500 mg tablet 500 mg PO DAILY #90 tabs 07/25/21 [Rx Last Taken Unknown] Allergy/AdvReac Type Severity Reaction Status Date / Time No Known Allergies Allergy Verified 08/03/23 11:24 Family History Father Cancer Mother COPD (chronic obstructive pulmonary disease) Grandmother COPD (chronic obstructive pulmonary disease) Surgical History S/P laparoscopy Status post amputation of finger Status post skin graft Social History (Updated 08/03/23 @ 14:[address] Natalya Saavedra MD) household members: family and children Smoking Status: Former smoker Tobacco: How many years used: 20 Electronic Cigarette Use: with nicotine how long ago did patient quit smoking: Quit cigarette use 1 yr prior-->light vaping, reports 3x/week. alcohol intake: current alcohol intake frequency: 3 or more drinks per day details: Pint gas station vodka frequently during the week. substance use type: former substance user Date of last use: 09/16/2016 caffeine: Yes what type of physical activity do you participate in: walking seatbelt use: always do you feel safe at home: Yes additional social history: Engaged- Aldo- Works at [employer] Patient works at [employer] were reviewed with pertinent positives as noted in the HPI above. Physical Exam Const alert and no apparent distress General Appearance: cooperative HEENT normocephalic, head/scalp atraumatic and moist oral mucous membranes Eyes PERRL, EOMs intact bilaterally and conjunctivae normal Neck supple General: trachea midline Chest inspection of chest normal Resp normal respiratory effort Auscultation: diminished lung sounds; Negative for rales, rhonchi or wheezes Cardio regular rate and regular rhythm GI normal to inspection, nondistended, normoactive bowel sounds Extremity no clubbing, cyanosis or edema Skin no rashes or lesions noted Neuro CN's II-XII intact bilaterally, moves all extremities and no focal motor deficits Psych cooperative and affect normal Lab / Micro Data 08/03/23 12:10 08/03/23 13:55 Labs: Laboratory Results - last 24 hr 08/03/23 12:10: WBC 3.2 L, RBC 4.05 L, Hgb 12.3, Hct 37.9, MCV 93.6, MCH 30.4, MCHC 32.5, RDW Std Deviation 58.1 H, RDW Coeff of Juan 17.1 H, Plt Count 54 L, Immature Gran % (Auto) 0.300, Neut % (Auto) 55.4, Lymph % (Auto) 33.0, Wheeler % (Auto) 10.1 H, Eos % (Auto) 0.3, Baso % (Auto) 0.9, Absolute Neuts (auto) 1.8 L, Absolute Lymphs (auto) 1.05, Nucleated RBC % 0, Platelet Estimate MOD DEC, ESR 5, Sodium Cancelled, Potassium Cancelled, Chloride Cancelled, Carbon Dioxide Cancelled, Anion Gap Cancelled, BUN Cancelled, Creatinine Cancelled, Estim Creat Clear Calc Cancelled, Est GFR (MDRD) Af Amer Cancelled, Est GFR (MDRD) Non-Af Cancelled, BUN/Creatinine Ratio Cancelled, Glucose Cancelled, Calcium Cancelled, B-Natriuretic Peptide 92.2 08/03/23 13:21: Fluid Source PLEURAL FLUID, Fluid Color YELLOW, Fluid Appearance CLEAR, Fluid WBC 0.356, Fluid RBC 437, Fluid Tot Cell Count 0.422 H, Fld Polynuclear WBCs # 0.008, Fld Polynuclear WBCs % 2.2, Fluid Mononuclear WBCs 0.348, Fld Mononuclear WBCs % 97.8, Fluid Neutrophils 3, Fluid Lymphocytes 54, Fluid Monocytes 6, Fluid Macrophages 37, Fl Pathologist Comment May follow, Fluid Glucose 114 H, Fluid Total Protein 2.1, Fluid LDH 106, Fluid Comment 2 SEE COMMENT 08/03/23 13:55: D-Dimer Quant (PE/DVT) 2.86 H*, Sodium 140 08/03/23 13:55: Sodium Cancelled, Potassium 3.6 08/03/23 13:55: Potassium Cancelled, Chloride 105 08/03/23 13:55: Chloride Cancelled, Carbon Dioxide 30.0 08/03/23 13:55: Carbon Dioxide Cancelled, Anion Gap 5 08/03/23 13:55: Anion Gap Cancelled, BUN 4 L 08/03/23 13:55: BUN Cancelled, Creatinine 0.63 08/03/23 13:55: Creatinine Cancelled, Estim Creat Clear Calc 117.74, Est GFR (MDRD) Af Amer 136 08/03/23 13:55: Est GFR (MDRD) Af Amer Cancelled, Est GFR (MDRD) Non-Af 113 08/03/23 13:55: Est GFR (MDRD) Non-Af Cancelled, BUN/Creatinine Ratio 6.4 L 08/03/23 13:55: BUN/Creatinine Ratio Cancelled, Glucose 114 H 08/03/23 13:55: Glucose Cancelled, Calcium 7.3 L 08/03/23 13:55: Calcium Cancelled, Phosphorus 3.2, Magnesium 1.5 L, Ferritin 157, Total Bilirubin Cancelled 08/03/23 13:55: Total Bilirubin 2.60 H, Direct Bilirubin Cancelled 08/03/23 13:55: Direct Bilirubin 1.52 H, AST Cancelled 08/03/23 13:55: AST 91 H, ALT Cancelled 08/03/23 13:55: ALT 32, Alkaline Phosphatase Cancelled 08/03/23 13:55: Alkaline Phosphatase 114, Lactate Dehydrogenase 342 H, Total Creatine Kinase 116, C-React Prot Ext Range < 2.90, Total Protein Cancelled 08/03/23 13:55: Total Protein 6.5, Albumin Cancelled 08/03/23 13:55: Albumin 2.3 L, Globulin Cancelled 08/03/23 13:55: Globulin 4.2, Albumin/Globulin Ratio Cancelled, Procalcitonin < 0.01 08/03/23 16:00: MRSA (PCR) POSITIVE H 08/03/23 17:00: Urine Test Negative Micro: Microbiology 08/03/23 20:45 Mucosa - Nasopharyngeal Respiratory Panel (PCR) - Final 08/03/23 17:00 Urine, Clean Catch Legionella Antigen - Final 08/03/23 17:00 Urine, Clean Catch Streptococcus pneumoniae Antigen (M - Final ABG Data ABG results: ABG 08/03/23 14:05 Specimen Type ART Sample Site L Radial pH 7.54 H Bicarbonate Actual 26.8 H Total CO2 28 Base Excess 4 H O2 Saturation 98 O2 % 2.0 ABG pCO2 31.5 L ABG pO2 89 O2 Delivery Device Cannula Vent Mode Not entered Radiology Impression Chest X-Ray 08/03/23 12:15 IMPRESSION: Large volume right subpulmonic pleural fluid with compressive atelectasis of the right lower lobe and right middle lobe. Electronically Signed: Ravinder Cardoso MD at 12:39 EDT , Thoracentesis Ultrasound 08/03/23 12:25 IMPRESSION: Ultrasound-guided right thoracentesis. Electronically Signed: Tomas Rojas MD at 13:48 EDT , Chest X-Ray 08/03/23 13:15 IMPRESSION: Status post right thoracentesis. Mild degree of residual pleural parenchymal changes at the right lung base. Electronically Signed: Tomas Rojas MD at 13:32 EDT , Chest CTA 08/03/23 15:26 IMPRESSION: 1. No evidence of acute pulmonary embolism. 2. Liver cirrhosis and portal hypertension. 3. Extensive third spacing of fluids. Electronically Signed: Arcadio Banerjee MD at 16:53 EDT , Charges/Coding Visit Charges Inpatient E&M: 22295 Init Hosp L3
[2023-08-04 06:20] VITALS: O2SAT 95
[2023-08-04 06:28] VITALS: BP 117/65; PULSE 78; RESP 16; TEMP 36.6; O2SAT 95
[2023-08-04] MEDS: buprenorphine HCL 8 MG TAB.SUBL SL (06:31)
[2023-08-04 07:23] LABS: Absolute Lymphocyte Count 1.21 X10^3/uL (0.83-4.51); Basophil# 0.01 X10^3/uL; Basophil% 0.2 % (0-1); Hematocrit 34.4 % (37-47); Hemoglobin 12.9 g/dL (12.0-15.0); Lymphocyte # 1.21 X10^3/ul (0.83-4.51); Lymphocyte % 26.4 % (19-41); Mean Corp Hgb Conc 37.5 g/dL (32-36); Mean Corpuscular Volume 96.1 fL (81-99); Mean Platelet Vol. 10.5 fl (6.2-12.0); Monocyte# 0.41 X10^3/uL; Monocyte% 8.9 % (0-10); NRBC Flagged by Analyzer 0 % (0-5); Neutrophil # 2.95 X10^3/uL (2.7-7.7); Neutrophil % 64.3 % (47-70); POSITIVE COUNT YES; Platelet Count 64 K/mm3 (150-450); RBC Distribution Width CV 17.7 % (11.6-14.6); Red Blood Count 3.58 M/mm3 (4.2-5.4); White Blood Count 4.6 K/mm3 (4.4-11.0)
[2023-08-04 07:46] LABS: ALB/GLOB Ratio 0.5 RATIO (0.9-2.4); AST(SGOT) 60 U/L (15-37); Alanine Aminotransfer ALT/SGPT 27 U/L (13-56); Albumin, Serum 1.9 g/dL (3.2-5.0); Alkaline Phosphatase 100 U/L (45-117); Anion Gap 5 (5-15); BUN 7 mg/dL (7-18); BUN/Creat Ratio 12.2 RATIO (10-20); Calcium,Total 7.1 mg/dL (8.5-10.1); Chloride 105 mmol/L (98-107); Creatinine, Serum 0.57 mg/dL (0.55-1.02); EST Glomerular Filtration Rate 125 mL/min (>60); Est Glom Filt Rate - Afr Amer 152 mL/min (>60); Estimated Creatinine Clearance 130.13 ml/min; Glucose 131 mg/dL (74-106); Protein, Total 5.9 g/dL (6.4-8.2); Sodium Level 138 mmol/L (136-145); Thyroid Stim Hormone (TSH) 1.17 uIU/mL (0.358-3.74)
--- NOTE | 2023-08-04 09:33 | CASEMGMT ---
Addendum entered by Magali Thompson 08/04/23 11:23: HENRY LA provided Pulse Ox to SW who states she will give this to pt. when she goes in to speak with pt. about ADs and resources. SW encouraged to let me know if pt. states she does not know how to use the pulse ox and we will ask pt's nurse to provide this education to pt. Addendum entered by Magali Jay 08/04/23 11:05: ETOH: Pt. states she drinks a little bottle of cheap vodka 4-5 times a week. She declines any additional recourses and states she uses 180 for her resources. Denies any illicit drug use. SW updated. Original Note: HENRY LA Assessment: Face to Face with pt for initial transition planning/care coordination assessment. HENRY LA introduced self and role at [facility], pt voices understanding and consents to assessment. Pt is A&O x4 and answers all questions appropriately at this time. Pt. is sitting up in bed watchign TV. Care providers, pharmacy, and demographics verified/updated. Admitting Dx:COVID, Hypoxia, R Sided Pleural Effusion PCP: Ruel Specialists: [facility] (Friend), Tashia (Suboxone online treatment) Preferred Pharm[facility] [place] Pres[place] Benefit: yes Living Will/HCPOA: No and No. States she would like information on ADs. HENRY LA will inform SW of this. LNOK:Aldo Clayton (significant other) Living Arrangements: Pt lives with her significant other and their four children (ages 16, 9, 3, and 2) in a 2 story with basement home (laundry is in the basement, kitchen on FF, bedrooms and bathroom on 2nd floor), 10 steps w/railing to enter home, 10 steps w/railing to basement, and 10 steps w/railing to 2nd floor. Prior to medical issues that brought pt. in for this admission, pt, states she was able to ambulate stairs well ((though it became more difficult once she became sick), and was independent in all ADLs and IADLs. Transportation: Pt drives self and denies concerns with transportation. States her significant other also drives. Pt. states her current plan is to drive herself home. DME: Breathing machine and inhaler. Pt. states she feels she would benefit from having a pulse ox at home and cannot afford to buy one OTC. HENRY CM to provide pt. with pulse ox to take home. HHC/SNF: Denies any previous HHC or SNF. Denies need for either SNF or HHC at [facility]. Pt states no concerns with going home at time of dc. Pt states no further concerns/needs. CM to follow. Advised pt to ask CM if any further question/concerns/needs arise, voices understanding. Pt Goal: Home with family support in place. Pt. States her significant other will be home for a few days and able to assist her. Pt. also states she plans to have her two oldest children help her around the house while she is still recovering. She states she would be interested in any information we have concerning childcare. Pt. states JFS already informed them they are not eligible for assistance. Pt. states she does not work. Plan: Pt. to discharge home with family support and follow-up plans in place.
[2023-08-04] MEDS: Folic Acid 1 MG Tablet PO (10:08)
[2023-08-04] MEDS: Prenatal Vits Tablet 1 TABLET PO (10:08)
[2023-08-04] MEDS: dexAMETHasone 4 MG/ML Vial 6 MG IV (10:08)
[2023-08-04] MEDS: Thiamine Hydrochloride 100 MG Tablet PO (10:08)
[2023-08-04 10:14] VITALS: BP 114/67; PULSE 74; RESP 16; TEMP 36.5; O2SAT 97
--- NOTE | 2023-08-04 11:46 | CASEMGMT ---
Social Work SW introduced self and role to patient. SW completed SDOH assessment as it was indicated that patient had concerns. SW discussed needs with patient. Pt reports struggling to pay bills, childcare concerns and food concerns. Pt reports receiving medicaid and food assistance. SW discussed PRC program with JFS and Childcare program. Pt reports they typically have not qualified for these programs. SW also provided [place] list with resources especially for food since food insecurity was expressed. Pt does report weekly alcohol use that has increased with financial stress. SW discussed one[employer] and AA programs and patient is involved with both services. Pt denies needing further resources. SW provided pulseox for patient to take home as CM RN obtained one for patient due to not having one at home for discharge. Pt denies further SW needs at this time. Roseanne Nelson PRINCIPAL IOS DEVELOPER, TEXTILE SCREEN MAKER
[2023-08-04 13:17] VITALS: PULSE 68; RESP 18
[2023-08-04] MEDS: Albuterol 2.5 MG/3 ML VIAL.NEB. INHALATION (13:17)
--- NOTE | 2023-08-04 13:49 | DCINST_ITS ---
Discharge Instructions Diet Discharge Diet: No restrictions Activity Discharge Activity: Return to Normal Activity Weight Bearing Status: Full weight bearing Follow Up Care Test Results: Test results from this visit will be discussed in further detail at your follow- up appointment, if applicable. Discharge Plan Admission Admit Date/Time: 08/03/23 14:15 Primary Reason for Your Visit: right pleural effusion Attending Provider: Georges Johnson Primary Care Provider: Freddie Lipscomb Consulting Providers: Natalya Saavedra Instructions Patient Instructions: CHITO RN Thoracentesis Dc Additional Instructions / Restrictions: If your pulse ox is consistently below 89%, call your physician or go to the ER for evaluation You will need follow up for your cirrhosis and Hepatitis C Discharge Orders/Prescriptions Prescriptions: New spironolactone [Aldactone] 50 mg tablet 50 mg PO DAILY Qty: 30 1RF dexamethasone 2 mg tablet 6 mg PO DAILY Qty: 24 0RF Rx Instructions: starting 08/05/23 Continued buprenorphine HCl 8 mg tablet, sublingual 8 mg SUBLINGUAL BID vitamin#30 30 mg iron-10 mg iron-folic acid 1 mg-omg3 capsule 30 mg iron-10 mg iron-1 mg capsule 1 cap PO DAILY propranolol 60 mg capsule,extended release 24 hr 60 mg PO QHS Qty: 30 1RF Hold Instructions: Pt has been DC'd escitalopram oxalate [Lexapro] 5 mg tablet 7.5 mg PO DAILY Hold Instructions: Pt has been DC'd valacyclovir 500 mg tablet 500 mg PO DAILY Qty: 90 1RF Hold Instructions: Pt has been DC'd Referrals / Follow Up: Freddie Lipscomb MD [Primary Care Provider] - Within 2 Weeks Fortino Rivera DO [Med Staff - Active Staff] - Within 1 Month Disposition Disposition (needs filled in before D/C Order can be placed): Home, Self Care
--- NOTE | 2023-08-04 13:59 | PCM.DC.SUM ---
Providers Date of Admission: 08/03/23 Date of Discharge: 08/04/23 Primary Care Physician: Dr. Freddie Lipscomb MD Consultations 08/03/23 16:56 Consult: V Belt Coverer / Pulmonary Medicine Routine Consulting Provider: [facility] Reason for Consult: right pleural effusion EMERGENT Consult: No MD Notified: Yes Date Notified: 08/03/23 Time Notified: 17:50 Method of Notification: Text Reason For Visit: COVID, HYPOXIA, R SIDED PLEURAL EFFUSION Diagnosis Discharge Diagnosis (1) Pleural effusion on right: Status: Acute Code(s): J90 - Pleural effusion, not elsewhere classified Plan 1. Transudative right pleural effusion secondary to cirrhosis #2 COVID-19 infection without pneumonia #3 chronic cirrhosis #4 thrombocytopenia secondary to cirrhosis #5 hypoxia secondary to right pleural effusion #6 small pericardial effusion-etiology unclear Medications at Discharge Home Medications buprenorphine HCl 8 mg sublingual tablet 8 mg sublingual BID Check with primary doctor 03/05/19 vitamin#30 30 mg iron-10 mg iron-folic acid 1 mg-omg3 capsule 1 cap PO DAILY 04/26/20 propranolol 60 mg capsule,24 hr,extended release 60 mg PO QHS #30 caps 06/24/21 escitalopram oxalate 5 mg tablet (Lexapro) 7.5 mg PO DAILY 07/25/21 valacyclovir 500 mg tablet 500 mg PO DAILY #90 tabs 07/25/21 dexamethasone 2 mg tablet 6 mg (3 x 2 mg) PO DAILY #24 tabs 08/04/23 spironolactone 50 mg tablet (Aldactone) 50 mg PO DAILY #30 tabs 08/04/23 Hospital Course Operations None Procedures Thoracentesis (While in the emergency room) Summary of Care Provided Minutes Spent on Discharge: 32 Hospital Course: This 38-year-old white female was seen in the emergency room at [facility] with complaints of cough and malaise as well as some shortness of breath on exertion which had worsened over the last 2 weeks. Patient took a COVID test at home that was positive, she states her children are all positive for COVID and she was seen at an urgent care center the day before and her COVID test there was positive. Work-up in the emergency room included a chest x-ray which showed a large right pleural effusion, labs are abnormal for a thrombocytopenia with a platelet count of 54,000, she had a mild leukopenia with a white blood cell count at 3.2, D-dimer was elevated at 2.86, magnesium was slightly low at 1.5, total bilirubin was elevated at 2.6, LDH was elevated at 342 and AST was elevated at 91. While in the emergency room, patient was sent to ultrasound and had a ultrasound-guided right thoracentesis with removal of 2210 mL of samanta-colored fluid. Analysis on this fluid revealed it to be transudative in nature. Patient was admitted to the hospital here after it was noted that she required supplemental oxygen to maintain her pulse ox above 90%. Patient was admitted to [place] [address], she was placed on Decadron-she was not felt to be candidate for remdesivir treatment due to the length of her symptoms, echocardiogram was performed due to a past history of CHF (patient was told when she was 20 years old she had congestive heart failure which was related to her drug use-this was while hospitalized at [facility]), her oxygen was able to be weaned off. Patient's echocardiogram showed a normal pump function, she had a small pericardial effusion. On 08/04/2023, patient was seen and examined: On examination she appeared in good health and spirits, she does not appear to be in any distress. Vital signs as documented. Skin warm and dry and without overt rashes. Neck without JVD, thyroid appears normal, trachea is midline, neck is supple. Lungs clear, normal air movement was noted. Heart exam notable for regular rhythm, normal sounds and absence of murmurs, rubs or gallops. Abdomen unremarkable and without evidence of organomegaly, masses, or abdominal aortic enlargement, bowel sounds are present in all 4 quadrants, no abdominal tenderness was noted. Extremities nonedematous, no cyanosis was noted, no clubbing was noted. Neuro: Cranial nerves II through XII are grossly intact, no focal motor deficits were noted, sensation to light touch and pinprick is intact, motor exam 5/5 throughout. Psych: Patient is alert and oriented x3, she does not appear anxious or depressed, she does not appear agitated. Patient appears stable for discharge home on 08/04/2023, as a further note, case management gave the patient a portable pulse ox unit, she was instructed that if her pulse ox fell below 89% consistently that she should go to the ER or contact her PCP for further instructions. Patient was urged to follow-up with her grades 9 12 tutor who she has not seen in 2 years and follow-up with her PCP within 2 weeks. Weight / BMI Weight Weight: 78 kg Body Mass Index (BMI) 26.9 ABG / Lab / Microbiology Data 08/04/23 06:40 08/04/23 06:40 Laboratory: Laboratory Results - last 24 hr 08/03/23 12:10: ESR 5, B-Natriuretic Peptide 92.2 08/03/23 13:21: Fluid Source PLEURAL FLUID, Fluid Color YELLOW, Fluid Appearance CLEAR, Fluid WBC 0.356, Fluid RBC 437, Fluid Tot Cell Count 0.422 H, Fld Polynuclear WBCs # 0.008, Fld Polynuclear WBCs % 2.2, Fluid Mononuclear WBCs 0.348, Fld Mononuclear WBCs % 97.8, Fluid Neutrophils 3, Fluid Lymphocytes 54, Fluid Monocytes 6, Fluid Macrophages 37, Fl Pathologist Comment May follow, Fluid Glucose 114 H, Fluid Total Protein 2.1, Fluid LDH 106, Fluid Comment 2 SEE COMMENT 08/03/23 13:55: D-Dimer Quant (PE/DVT) 2.86 H*, Sodium 140 08/03/23 13:55: Sodium Cancelled, Potassium 3.6 08/03/23 13:55: Potassium Cancelled, Chloride 105 08/03/23 13:55: Chloride Cancelled, Carbon Dioxide 30.0 08/03/23 13:55: Carbon Dioxide Cancelled, Anion Gap 5 08/03/23 13:55: Anion Gap Cancelled, BUN 4 L 08/03/23 13:55: BUN Cancelled, Creatinine 0.63 08/03/23 13:55: Creatinine Cancelled, Estim Creat Clear Calc 117.74, Est GFR (MDRD) Af Amer 136 08/03/23 13:55: Est GFR (MDRD) Af Amer Cancelled, Est GFR (MDRD) Non-Af 113 08/03/23 13:55: Est GFR (MDRD) Non-Af Cancelled, BUN/Creatinine Ratio 6.4 L 08/03/23 13:55: BUN/Creatinine Ratio Cancelled, Glucose 114 H 08/03/23 13:55: Glucose Cancelled, Calcium 7.3 L 08/03/23 13:55: Calcium Cancelled, Phosphorus 3.2, Magnesium 1.5 L, Ferritin 157, Total Bilirubin Cancelled 08/03/23 13:55: Total Bilirubin 2.60 H, Direct Bilirubin Cancelled 08/03/23 13:55: Direct Bilirubin 1.52 H, AST Cancelled 08/03/23 13:55: AST 91 H, ALT Cancelled 08/03/23 13:55: ALT 32, Alkaline Phosphatase Cancelled 08/03/23 13:55: Alkaline Phosphatase 114, Lactate Dehydrogenase 342 H, Total Creatine Kinase 116, C-React Prot Ext Range < 2.90, Total Protein Cancelled 08/03/23 13:55: Total Protein 6.5, Albumin Cancelled 08/03/23 13:55: Albumin 2.3 L, Globulin Cancelled 08/03/23 13:55: Globulin 4.2, Albumin/Globulin Ratio Cancelled, Procalcitonin < 0.01 08/03/23 16:00: MRSA (PCR) POSITIVE H 08/03/23 17:00: Urine Test Negative 08/04/23 06:40: WBC 4.6, RBC 3.58 L, Hgb 12.9, Hct 34.4 L, MCV 96.1, MCH 36.0 H, MCHC 37.5 H D, RDW Std Deviation 57.0 H, RDW Coeff of Juan 17.7 H, Plt Count 64 L, MPV 10.5, Immature Gran % (Auto) 0.200, Neut % (Auto) 64.3, Lymph % (Auto) 26.4, Marin % (Auto) 8.9, Eos % (Auto) 0.0, Baso % (Auto) 0.2, Absolute Neuts (auto) 3.0, Absolute Lymphs (auto) 1.21, Nucleated RBC % 0, Sodium 138, Potassium 4.0, Chloride 105, Carbon Dioxide 28.0, Anion Gap 5, BUN 7, Creatinine 0.57, Estim Creat Clear Calc 130.13, Est GFR (MDRD) Af Amer 152, Est GFR (MDRD) Non-Af 125, BUN/Creatinine Ratio 12.2, Glucose 131 H, Calcium 7.1 L, Total Bilirubin 2.30 H, AST 60 H, ALT 27, Alkaline Phosphatase 100, Total Protein 5.9 L, Albumin 1.9 L, Globulin 4.0, Albumin/Globulin Ratio 0.5 L, TSH 1.17 Microbiology: Microbiology 08/03/23 20:45 Mucosa - Nasopharyngeal Respiratory Panel (PCR) - Final 08/03/23 17:00 Urine, Clean Catch Legionella Antigen - Final 08/03/23 17:00 Urine, Clean Catch Streptococcus pneumoniae Antigen (M - Final ABG: ABG 08/03/23 14:05 Specimen Type ART Sample Site L Radial pH 7.54 H Bicarbonate Actual 26.8 H Total CO2 28 Base Excess 4 H O2 Saturation 98 O2 % 2.0 ABG pCO2 31.5 L ABG pO2 89 O2 Delivery Device Cannula Vent Mode Not entered Radiography Diagnostic Testing: Radiology Impression Chest CTA 08/03/23 15:26 IMPRESSION: 1. No evidence of acute pulmonary embolism. 2. Liver cirrhosis and portal hypertension. 3. Extensive third spacing of fluids. Electronically Signed: Arcadio Banerjee MD at 16:53 EDT , Echocardiogram 08/03/23 15:32 Interpretation Summary The estimated ejection fraction is 60 %. Trivial mitral valve insufficiency. Small pericardial effusion. Ordering Physician: Natalya Saavedra Referring Physician: Freddie Lipscomb Performed By: Aury Bravo, NAVID, RVT D/C Instructions Discharge Diet: No restrictions Weight Bearing Status: Full weight bearing Meaningful Use Info Meaningful Use Diagnoses (Choose all that apply): None applicable Discharge Plan Admission Admit Date/Time: 08/03/23 14:15 Primary Reason for Your Visit: right pleural effusion Attending Provider: Georges Johnson Primary Care Provider: Freddie Lipscomb Consulting Providers: Natalya Saavedra Instructions Patient Instructions: RAD RN Thoracentesis Dc Additional Instructions / Restrictions: If your pulse ox is consistently below 89%, call your physician or go to the ER for evaluation You will need follow up for your cirrhosis and Hepatitis C Discharge Orders/Prescriptions Prescriptions: New spironolactone [Aldactone] 50 mg tablet 50 mg PO DAILY Qty: 30 1RF dexamethasone 2 mg tablet 6 mg PO DAILY Qty: 24 0RF Rx Instructions: starting 08/05/23 Continued buprenorphine HCl 8 mg tablet, sublingual 8 mg SUBLINGUAL BID vitamin#30 30 mg iron-10 mg iron-folic acid 1 mg-omg3 capsule 30 mg iron-10 mg iron-1 mg capsule 1 cap PO DAILY propranolol 60 mg capsule,extended release 24 hr 60 mg PO QHS Qty: 30 1RF Hold Instructions: Pt has been DC'd escitalopram oxalate [Lexapro] 5 mg tablet 7.5 mg PO DAILY Hold Instructions: Pt has been DC'd valacyclovir 500 mg tablet 500 mg PO DAILY Qty: 90 1RF Hold Instructions: Pt has been DC'd Referrals / Follow Up: Freddie Lipscomb MD [Primary Care Provider] - Within 2 Weeks Fortino Rivera DO [Med Staff - Active Staff] - Within 1 Month Disposition Disposition (needs filled in before D/C Order can be placed): Home, Self Care Charges/Coding Visit Charges Inpatient E&M: 71430 Disch Hosp >30min
[2023-08-07 10:16] LABS: Pathologist Comment/Body Fluid Reviewed
== END 2023-08-04 14:54 | disposition home or self-care (01) | DRG 137 ==
LOC: ED 13:56 → MS3 14:39
PROVIDERS: Admitting Provider Family Medicine; Emergency Provider Emergency Medicine; PCP Internal Medicine; Visit Provider Internal Medicine
DX: U07.1 COVID-19 (principal); K70.30 Alcoholic cirrhosis of liver without ascites; F19.11 Other psychoactive substance abuse, in remission; D69.6 Thrombocytopenia, unspecified; B18.2 Chronic viral hepatitis C; I10 Essential (primary) hypertension; J91.8 Pleural effusion in other conditions classified elsewhere; D69.59 Other secondary thrombocytopenia; F10.10 Alcohol abuse, uncomplicated; F17.290 Nicotine dependence, other tobacco product, uncomplicated; R09.02 Hypoxemia; Y90.9 Presence of alcohol in blood, level not specified; Z59.41 Food insecurity; Z59.86 Financial insecurity
CPT/HCPCS: 32555; 36415; 36600; 71045; 71046; 71275; 80048; 80053; 80076; 81025; 82550; 82728; 82803; 82945; 83615; 83735; 83880; 84100; 84145; 84157; 84443; 85025; 85379; 85652; 86140; 87449; 87633; 87641; 88108; 88305; 88313; 89050; 93005; 93308; 94640; 94668; 96365; 96366; 96375; 99221; 99252; 99284; Q9967; A4216; G0378; G0463

== ENCOUNTER 2024-09-13 18:04 | Emergency (ER) | payer MEDICAID, SELFPAY ==
[2024-09-13 18:05] VITALS: BP 149/83; PULSE 72; RESP 18; TEMP 36.8; O2SAT 96; BMI 33.0
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
[2024-09-13] MEDS: Cephalexin 250 MG Capsule 500 MG PO (20:21)
== END 2024-09-13 20:22 | disposition home or self-care (01) ==
PROVIDERS: Emergency Provider Surgery; Referring Provider Surgery; Visit Provider Surgery
DX: L73.9 Follicular disorder, unspecified (principal); I11.0 Hypertensive heart disease with heart failure; I50.9 Heart failure, unspecified; T23.221A Burn of second degree of single right finger (nail) except thumb, initial encounter; F17.290 Nicotine dependence, other tobacco product, uncomplicated; Z86.16 Personal history of COVID-19; X58.XXXA Exposure to other specified factors, initial encounter
CPT/HCPCS: 99283